=== PATIENT | male | born 1945 | race Caucasian/White ===

== ENCOUNTER 2017-05-11 08:14 | Inpatient (IN) | payer MEDICARE, MEDICAID ==
[~2017-05-11] VITALS: Ht 175.3 cm; Wt 80.0 kg
[2017-05-11] VITALS (9 sets, daily range): BP systolic 108–144; BP diastolic 65–91
[~2017-05-11 08:14] MED LIST: ACET-2119 PO; ALBU1.257 NEB; ARFO15VI3 NEB; ATOR40TA71 PO; CALC-1051 PO; CARV3.122 PO; CLOP75TA15 PO; DOCU-28 PO; DOCUMENT DATE & TIME OF BETA-BLOCKER PO ONE; FLO0.4C PO; FLUO20CA22 PO; FLUT1AER INH; FOL0.4T PO; FURO-150 PO; HEPARIN SQ; LACT1CAP65 PO; LANTUS SQ; LISI-600 PO; MAG355OR18 PO; MULT1TAB74 PO; NITR0.4T48 SL; PANT-47 PO; PER5325T PO; POLY17PO10 PO; PREG100C PO; SLIDINGSCALE INSULIN SQ; TRAZ-143 PO; VITC500T PO; [UNRECOGNIZED DRUG - OTHER] PO; ceFAZolin 2gm in dextrose, iso 100 ML IV ONE; famotidine 20mg tablet PO ONE; ringers solution, lacted 1,000 ML IV SCH
[2017-05-11 09:54] LABS: PRE OP INR 1.1 INR; PRE OP PROTIME 11.4 SECONDS (9.0-12.0)
[2017-05-11 10:07] LABS: ALBUMIN 2.1 G/DL (3.4-5.0); ALBUMIN/GLOBULIN RATIO 0.5 (1.1-1.5); ALKALINE PHOSPHATASE 118 IU/L (46-116); BLOOD UREA NITROGEN 16 MG/DL (7-18); BUN/CREATININE RATIO 17.8 (5.4-32.0); CALCIUM 8.6 MG/DL (8.5-10.1); CHLORIDE 101 MMOL/L (99-107); PRE OP ALT 30 U/L (30-65); PRE OP ANION GAP 6 (8-16); PRE OP AST 18 U/L (10-37); PRE OP GLUCOSE 192 MG/DL (70-104); PRE OP POTASSIUM 4.6 MMOL/L (3.4-5.1); PRE OP SODIUM 134 MMOL/L (135-145); TOTAL CARBON DIOXIDE 26.7 MMOL/L (24-32); TOTAL PROTEIN 6.5 G/DL (6.4-8.2); eGFR 83 ML/MIN
[2017-05-11 10:21] LABS: BASOPHILS # (AUTO) 0.1 X10'3 (0-0.2); BASOPHILS % (AUTO) 0.6 % (0-1); EOSINOPHILS # (AUTO) 0.1 X10'3 (0-0.9); EOSINOPHILS % (AUTO) 0.8 % (0-6); LYMPHOCYTES # (AUTO) 2.2 X10'3 (1.1-4.8); LYMPHOCYTES % (AUTO) 21.7 % (21-51); MEAN CORPUSCULAR HEMOGLOBIN 27.5 PG (27.0-31.0); MEAN CORPUSCULAR HGB CONC 33.5 % (33.0-36.5); MEAN CORPUSCULAR VOLUME 82.2 FL (78-98); MEAN PLATELET VOLUME 8.3 FL (7.4-10.4); MONOCYTES # (AUTO) 0.7 X10'3 (0-0.9); MONOCYTES % (AUTO) 6.9 % (2-12); NEUTROPHILS # (AUTO) 7.2 X10'3 (1.8-7.7); PRE OP HEMATOCRIT 35.3 % (42.0-52.0); PRE OP HEMOGLOBIN 11.8 g/dL (14.0-17.9); PRE OP PLATELET COUNT 335 X10'3 (140-440); RED CELL DISTRIBUTION WIDTH 19.5 % (11.5-14.5)
[2017-05-11 10:36] LABS: HEMOGLOBIN A1C 8.5 % (4.5-6.2)
[2017-05-11 11:37] LABS: CLARITY,URINE CLOUDY (Clear); COLOR,URINE YELLOW (Yellow); GLUCOSE, URINE NEGATIVE (Neg); KETONES,URINE NEGATIVE (Neg); LEUKOCYTE ESTERASE ,URINE MODERATE (Neg); NITRITES, URINE NEGATIVE (Neg); OCCULT BLOOD,URINE LARGE (Neg); PH,URINE 7.5 (4.8-8.0); PROTEIN,URINE TRACE mg/dl (Neg)
[2017-05-11] MEDS ORDERED: ceFAZolin 1000mg inj ONE (11:37)
[2017-05-11] MEDS ORDERED: heparin 10,000 units/1 ML INJ ONE (11:37)
[2017-05-11 11:38] LABS: UA COLLECTION TYPE FOLEY CATH
[2017-05-11] MEDS ORDERED: fentaNYL/PF 50MCG/1 ML 2ML syringe ONE (11:46)
[2017-05-11] MEDS ORDERED: sevoflurane 250ml liquid IH ONE (11:57)
[2017-05-11 12:21] LABS: BACTERIA,URINE 4+ /HPF (Neg); MUCUS STRANDS FEW /LPF (Neg); SQUAMOUS EPITHELIAL CELL,UR FEW /LPF (FEW)
[2017-05-11] MEDS ORDERED: ringers solution, lacted 1,000 ML IV ONE (12:26)
[2017-05-11] MEDS ORDERED: meperidine/PF 25mg/ml syringe IV PRN ×2 (12:30)
[2017-05-11] MEDS ORDERED: labetalol 20mg/4ml (5mg/ml) syringe IV PRN (12:30)
[2017-05-11] MEDS ORDERED: hydrALAZINE 20mg/ml inj. IV PRN (12:30)
[2017-05-11] MEDS ORDERED: ondansetron/PF 4mg/2ml inj IV PRN (12:30)
[2017-05-11] MEDS ORDERED: meperidine/PF 25mg/ml syringe IV ONE (12:30)
[2017-05-11] MEDS ORDERED: LIDOcaine 1%/PF (10mg/ml) 5ml vial ONE (12:35)
[2017-05-11] MEDS ORDERED: propofol inj 20 ML IV ONE (12:35)
[2017-05-11] MEDS ORDERED: rocuronium 10mg/ml inj IV ONE (12:35)
[2017-05-11] MEDS ORDERED: glycopyrrolate 0.2mg/ml inj ONE (12:48)
[2017-05-11] MEDS ORDERED: neostigmine methylsulfate 1 MG/ML 10ml vial ONE (12:48)
[2017-05-11] MEDS ORDERED: esmolol inj. 10 ML IV ONE (12:54)
== END 2017-05-11 14:45 | DRG 493 ==
LOC: PAS 08:14 → PAS IN 09:26 → EDSTATUS 12:00
PROVIDERS: ADMIT Surgery; ATTEND Surgery
PROC: 0QBJ0ZZ Excision of Right Fibula, Open Approach (ICD-10-PCS; 2017-05-11)
PROC: 0QBG0ZZ Excision of Right Tibia, Open Approach (ICD-10-PCS; 2017-05-11)
PROC: 04PY0DZ Removal of Intraluminal Device from Lower Artery, Open Approach (ICD-10-PCS; principal; 2017-05-11 11:57)
DX: T87.89 Other complications of amputation stump (principal); I13.0 Hypertensive heart and chronic kidney disease with heart failure and stage 1 through stage 4 chronic kidney disease, or unspecified chronic kidney disease; E11.22 Type 2 diabetes mellitus with diabetic chronic kidney disease; E11.42 Type 2 diabetes mellitus with diabetic polyneuropathy; I50.9 Heart failure, unspecified; N18.3 Chronic kidney disease, stage 3 (moderate); I25.10 Atherosclerotic heart disease of native coronary artery without angina pectoris; E78.5 Hyperlipidemia, unspecified; K21.9 Gastro-esophageal reflux disease without esophagitis; F32.9 Major depressive disorder, single episode, unspecified; J44.9 Chronic obstructive pulmonary disease, unspecified; Y83.5 Amputation of limb(s) as the cause of abnormal reaction of the patient, or of later complication, without mention of misadventure at the time of the procedure; Y92.89 Other specified places as the place of occurrence of the external cause
CPT/HCPCS: 36415; 80053; 81001; 82948; 83036; 85025; 85610; 85730; 86885; 86900; 86901; 87077; 87088; 87186; A6258; A6446; A6449; A7000; J0690; J1644; J2001; J2704; J2710; J3010; J3490; J7030; J7120

== ENCOUNTER 2017-06-15 10:48 | Day surgery (SDC) | payer MEDICARE, MEDICAID ==
[~2017-06-15] VITALS: Ht 175.3 cm; Wt 66.0 kg
[2017-06-15] VITALS (7 sets, daily range): BP systolic 96–115; BP diastolic 59–71
[~2017-06-15 10:48] MED LIST changes: +BISA10SU60 RC; +CALC-729 PO; +DICLOFENAC CREAM TOP; -FURO-150 PO; +GUAI100L97 PO; -HEPARIN SQ; -LACT1CAP65 PO; +ONDA8TAB9 PO; +PROC-8 PO; +ZIN220C PO; +albuterol 2.5 MG/3 ML nebule ONE; -ceFAZolin 2gm in dextrose, iso 100 ML IV ONE; +cefazolin/dext.iso 2gm/50ml 50 ML IV ONE
[2017-06-15] MEDS ORDERED: LIDOcaine 1% (10mg/ml) 2ml vial ONE (11:53)
[2017-06-15 12:21] LABS: BASOPHILS % (AUTO) 0.3 % (0-1); EOSINOPHILS # (AUTO) 0.2 X10'3 (0-0.9); EOSINOPHILS % (AUTO) 1.4 % (0-6); HEMATOCRIT 34.5 % (42.0-52.0); HEMOGLOBIN 11.6 g/dl (14.0-17.9); LYMPHOCYTES # (AUTO) 1.6 X10'3 (1.1-4.8); LYMPHOCYTES % (AUTO) 12.4 % (21-51); MEAN CORPUSCULAR HEMOGLOBIN 27.6 PG (27.0-31.0); MEAN CORPUSCULAR HGB CONC 33.7 % (33.0-36.5); MEAN CORPUSCULAR VOLUME 81.8 FL (78-98); MEAN PLATELET VOLUME 8.2 FL (7.4-10.4); MONOCYTES % (AUTO) 7.7 % (2-12); NEUTROPHILS # (AUTO) 9.8 X10'3 (1.8-7.7); NEUTROPHILS % (AUTO) 78.2 % (42-75); PLATELET COUNT 233 X10'3 (140-440); RED BLOOD COUNT 4.22 X10'6 (4.70-6.10); WHITE BLOOD COUNT 12.6 X10'3 (4.5-11.0)
[2017-06-15 12:45] LABS: ALANINE AMINOTRANSFERASE 58 U/L (12-78); ALBUMIN 2.5 G/DL (3.4-5.0); ALBUMIN/GLOBULIN RATIO 0.6 (1.1-1.5); ALKALINE PHOSPHATASE 111 IU/L (46-116); ANION GAP 8 (8-16); ASPARTATE AMINO TRANSFERASE 38 U/L (10-37); BLOOD UREA NITROGEN 32 MG/DL (7-18); BUN/CREATININE RATIO 30.5 (5.4-32.0); CHLORIDE 95 MMOL/L (99-107); CREATININE 1.05 MG/DL (0.60-1.10); GLUCOSE 137 MG/DL (70-104); POTASSIUM 4.9 MMOL/L (3.5-5.1); SODIUM 129 MMOL/L (135-145); TOTAL CARBON DIOXIDE 25.7 MMOL/L (24-32); TOTAL PROTEIN 6.7 G/DL (6.4-8.2); eGFR 70 ML/MIN
[2017-06-15] MEDS ORDERED: sevoflurane 250ml liquid IH ONE (13:43)
[2017-06-15] MEDS ORDERED: cloNIDine hcl/PF 100mcg/ml inj ONE (13:44)
[2017-06-15] MEDS ORDERED: midazolam 2 mg/2 ml injection ONE (13:46)
[2017-06-15] MEDS ORDERED: BUPIVAcaine/PF 2.5 mg/ml (0.25%) 30ml vial ONE ×2 (14:11)
[2017-06-15] MEDS ORDERED: LIDOcaine 2% (20mg/ml) 5ml vial ONE (14:14)
[2017-06-15] MEDS ORDERED: ePHEDrine 50MG/ML INJ. ONE (14:14)
[2017-06-15] MEDS ORDERED: dexamethasone sod phosphate 4mg/ml inj. ONE (14:14)
[2017-06-15] MEDS ORDERED: propofol inj 20 ML IV ONE (14:14)
[2017-06-15] MEDS ORDERED: rocuronium 10mg/ml inj IV ONE (14:14)
[2017-06-15] MEDS ORDERED: ringers solution, lacted 1,000 ML IV SCH (14:48)
[2017-06-15] MEDS ORDERED: proCHLORperazine 10 MG/2 ml inj IV PRN (14:50)
[2017-06-15] MEDS ORDERED: fentaNYL/PF 50MCG/1 ML 2ML syringe IV PRN ×2 (14:50)
[2017-06-15] MEDS ORDERED: ondansetron/PF 4mg/2ml inj IV PRN (14:50)
== END 2017-06-15 15:44 ==
LOC: PAS 10:48
PROVIDERS: ATTEND Surgery
DX: T87.89 Other complications of amputation stump (principal); Y83.5 Amputation of limb(s) as the cause of abnormal reaction of the patient, or of later complication, without mention of misadventure at the time of the procedure; Y92.89 Other specified places as the place of occurrence of the external cause; J44.9 Chronic obstructive pulmonary disease, unspecified; M86.9 Osteomyelitis, unspecified; E11.69 Type 2 diabetes mellitus with other specified complication; E11.22 Type 2 diabetes mellitus with diabetic chronic kidney disease; N18.3 Chronic kidney disease, stage 3 (moderate); E78.5 Hyperlipidemia, unspecified; I50.9 Heart failure, unspecified; K21.9 Gastro-esophageal reflux disease without esophagitis; F32.9 Major depressive disorder, single episode, unspecified; I48.91 Unspecified atrial fibrillation; E11.42 Type 2 diabetes mellitus with diabetic polyneuropathy; Z86.73 Personal history of transient ischemic attack (TIA), and cerebral infarction without residual deficits
CPT/HCPCS: 27594; 36415; 80053; 82948; 85025; 93005; A6222; A6446; A6449; A6454; J0690; J0735; J1100; J2001; J2704; J3010; J3490; J7120; A7000; J2250

== ENCOUNTER 2018-09-19 15:48 | Emergency (ER) | payer MEDICARE, OTHER ==
[~2018-09-19] VITALS: Ht 175.3 cm; Wt 72.7 kg
[~2018-09-19 15:48] MED LIST changes: -CLOP75TA15 PO; -DOCUMENT DATE & TIME OF BETA-BLOCKER PO ONE; -FOL0.4T PO; +FOLI0.4T14 PO; -TRAZ-143 PO; +TRAZ-251 PO; -albuterol 2.5 MG/3 ML nebule ONE; -cefazolin/dext.iso 2gm/50ml 50 ML IV ONE; -famotidine 20mg tablet PO ONE; -ringers solution, lacted 1,000 ML IV SCH
[2018-09-19] MEDS ORDERED: ondansetron 4mg rapidly disintigrating tab PO ONE (16:50)
[2018-09-19] MEDS ORDERED: mupirocin 2% ointment 22GM TP ONE (16:50)
[2018-09-19] MEDS ORDERED: normal saline 1000ml 1,000 ML IV ONE (16:50)
[2018-09-19] MEDS ORDERED: doxycycline inj 100 MG in normal saline 100ml IV soln 100 ML IV ONE (16:50)
[2018-09-19] MEDS ORDERED: ceFAZolin 1GM/D5W- ADD-VANTAGE 50 ML IV ONE (16:50)
[2018-09-19] MEDS ORDERED: DOXY100C43 PO (17:16)
[2018-09-19] MEDS ORDERED: CEPH250T PO (17:16)
[2018-09-19] MEDS ORDERED: ONDA8TAB6 PO (17:16)
[2018-09-19 17:51] VITALS: BP 130/62
--- NOTE | 2018-09-19 18:05 | NUR ---
PATIENT PROVIDED EXTRA 4 X 4 GAUZE AND ARMANDO WRAP
[2018-09-21] MEDS ORDERED: INSU100I31 SUBCUT (22:47)
== END 2018-09-19 18:40 | disposition home or self-care (01) ==
LOC: ER 15:49
DX: L08.89 Other specified local infections of the skin and subcutaneous tissue (principal); I48.91 Unspecified atrial fibrillation; I25.10 Atherosclerotic heart disease of native coronary artery without angina pectoris; E78.00 Pure hypercholesterolemia, unspecified; I25.2 Old myocardial infarction; K21.9 Gastro-esophageal reflux disease without esophagitis; I13.0 Hypertensive heart and chronic kidney disease with heart failure and stage 1 through stage 4 chronic kidney disease, or unspecified chronic kidney disease; E11.22 Type 2 diabetes mellitus with diabetic chronic kidney disease; N18.9 Chronic kidney disease, unspecified; I50.9 Heart failure, unspecified; E11.42 Type 2 diabetes mellitus with diabetic polyneuropathy; Z95.5 Presence of coronary angioplasty implant and graft; Z89.611 Acquired absence of right leg above knee; Z95.1 Presence of aortocoronary bypass graft; Z98.890 Other specified postprocedural states; Z86.73 Personal history of transient ischemic attack (TIA), and cerebral infarction without residual deficits; Z79.899 Other long term (current) drug therapy; Z88.5 Allergy status to narcotic agent; Z79.4 Long term (current) use of insulin
CPT/HCPCS: 96365; 96368; 99284; J0690; J7030; J3490

== ENCOUNTER 2018-12-28 17:59 | Emergency (ER) | payer MEDICARE, OTHER ==
[~2018-12-28] VITALS: Ht 175.3 cm; Wt 73.0 kg
[~2018-12-28 17:59] MED LIST changes: -ALBU1.257 NEB; -ARFO15VI3 NEB; -CARV3.122 PO; -DICLOFENAC CREAM TOP; -FLUT1AER INH; -GUAI100L97 PO; +INSU100I31 SUBCUT; -LANTUS SQ; -MULT1TAB74 PO; -ONDA8TAB9 PO; -PER5325T PO; -PROC-8 PO
--- NOTE | 2018-12-28 20:13 | NUR ---
PATIENT LEFT [facility] MID OCTOBER FOR OSTEOMYLITIS
[2018-12-28] MEDS ORDERED: normal saline 1000ml 1,000 ML IV ONE (20:15)
[2018-12-28] MEDS ORDERED: vancomycin/NS 1 GM ADD-VANTAGE 250 ML IV ONE (20:15)
--- NOTE | 2018-12-28 20:36 | NUR ---
DAUGHTER BALJIT PARKER [phone] CELL; HER HUSBANDS CELL [phone]
--- NOTE | 2018-12-28 20:50 | NUR ---
PATIENT STATES THAT LEFT ARM GIVES VERY HIGH BLOOD PRESSURE READINGS DAUGHTER TOOK PATIENT'S WHEELCHAIR
[2018-12-28 20:52] LABS: BASOPHILS # (AUTO) 0.1 X10'3 (0-0.2); BASOPHILS % (AUTO) 0.8 % (0-1); EOSINOPHILS # (AUTO) 0.1 X10'3 (0-0.9); EOSINOPHILS % (AUTO) 1.3 % (0-6); HEMATOCRIT 43.8 % (42.0-52.0); HEMOGLOBIN 14.7 g/dl (14.0-17.9); LYMPHOCYTES # (AUTO) 1.6 X10'3 (1.1-4.8); MEAN CORPUSCULAR HEMOGLOBIN 30.7 PG (27.0-31.0); MEAN CORPUSCULAR HGB CONC 33.6 g/dL (33.0-36.5); MEAN CORPUSCULAR VOLUME 91.3 FL (78-98); MEAN PLATELET VOLUME 9.3 FL (7.4-10.4); MONOCYTES % (AUTO) 10.1 % (2-12); NEUTROPHILS # (AUTO) 7.2 X10'3 (1.8-7.7); NEUTROPHILS % (AUTO) 71.8 % (42-75); PLATELET COUNT 171 X10'3 (140-440); RED CELL DISTRIBUTION WIDTH 14.5 % (11.5-14.5)
[2018-12-28 21:26] LABS: ALANINE AMINOTRANSFERASE 21 U/L (12-78); ALBUMIN 3.1 G/DL (3.4-5.0); ALBUMIN/GLOBULIN RATIO 0.7 (1.1-1.5); ALKALINE PHOSPHATASE 81 IU/L (46-116); ANION GAP 10 (8-16); ASPARTATE AMINO TRANSFERASE 13 U/L (10-37); BILIRUBIN,TOTAL 0.7 MG/DL (0.1-1.0); BLOOD UREA NITROGEN 26 MG/DL (7-18); BUN/CREATININE RATIO 21.8 (5.4-32.0); CALCIUM 8.8 MG/DL (8.5-10.1); CHLORIDE 103 MMOL/L (99-107); CREATININE 1.19 MG/DL (0.60-1.10); GLUCOSE 207 MG/DL (70-104); MAGNESIUM 1.8 MG/DL (1.5-2.4); POTASSIUM 4.3 MMOL/L (3.5-5.1); SODIUM 136 MMOL/L (135-145); TOTAL CARBON DIOXIDE 22.7 MMOL/L (24-32); TOTAL PROTEIN 7.3 G/DL (6.4-8.2); eGFR 60 ML/MIN
--- NOTE | 2018-12-28 21:54 | NUR ---
PER DAUGHTER, PT CATHETER WAS CHANGED LAST WEEK BY [facility] TIRE ROOM SUPERVISOR AND IS CHANGED MONTHLY.
[2018-12-28 22:04] LABS: CLARITY,URINE CLEAR (Clear); COLOR,URINE STRAW (Yellow); GLUCOSE, URINE NEGATIVE (Neg); KETONES,URINE NEGATIVE (Neg); LEUKOCYTE ESTERASE ,URINE MODERATE (Neg); NITRITES, URINE NEGATIVE (Neg); OCCULT BLOOD,URINE TRACE-INTACT (Neg); PH,URINE 5.5 (4.8-8.0); PROTEIN,URINE NEGATIVE (Neg); UROBILINOGEN,URINE 0.2 E.U/dL (0.2-1.0)
[2018-12-28 22:09] LABS: UA COLLECTION TYPE FOLEY CATH
[2018-12-28 22:11] LABS: BACTERIA,URINE FEW /HPF (Neg); RBC,URINE NONE SEEN /HPF (0-2); SQUAMOUS EPITHELIAL CELL,UR NONE SEEN /LPF (FEW)
--- NOTE | 2018-12-28 22:33 | NUR ---
CALLED [facility] TO TRY FOR INFECTIOUS CONSOULT WAS NOTIFIED THAT THEY DONT HAVE INFECTION CONTROLE AFTER SCHOOL TUTOR
[2018-12-28] MEDS ORDERED: SULF1TAB49 PO (22:49)
[2018-12-28] MEDS ORDERED: sulfamethoxazole/trimethoprim DS (800/160mg) tablet PO ONE (22:50)
[2018-12-28 23:46] VITALS: BP 121/55
--- NOTE | 2018-12-31 15:06 | NUR ---
called pt and spoke to daughter about adding cipro for uti. Cipro 500mg po BID called to gianna
== END 2018-12-28 23:49 | disposition home or self-care (01) ==
LOC: ER 17:59
DX: T87.44 Infection of amputation stump, left lower extremity (principal); L03.116 Cellulitis of left lower limb; I48.91 Unspecified atrial fibrillation; I25.10 Atherosclerotic heart disease of native coronary artery without angina pectoris; E78.00 Pure hypercholesterolemia, unspecified; I25.2 Old myocardial infarction; K21.9 Gastro-esophageal reflux disease without esophagitis; I13.0 Hypertensive heart and chronic kidney disease with heart failure and stage 1 through stage 4 chronic kidney disease, or unspecified chronic kidney disease; E11.22 Type 2 diabetes mellitus with diabetic chronic kidney disease; N18.9 Chronic kidney disease, unspecified; I50.89 Other heart failure; F32.9 Major depressive disorder, single episode, unspecified; Z98.61 Coronary angioplasty status; Z95.1 Presence of aortocoronary bypass graft; Z95.0 Presence of cardiac pacemaker; Z88.5 Allergy status to narcotic agent; Z79.4 Long term (current) use of insulin; Z79.899 Other long term (current) drug therapy; Y84.8 Other medical procedures as the cause of abnormal reaction of the patient, or of later complication, without mention of misadventure at the time of the procedure; Y92.89 Other specified places as the place of occurrence of the external cause
CPT/HCPCS: 36415; 71045; 80053; 81001; 83605; 83735; 84145; 85025; 85610; 87040; 87077; 87088; 87186; 93005; 96365; 96366; 99284; J3370; J7030

== ENCOUNTER 2019-01-06 12:44 | Inpatient (IN) | payer MEDICARE, OTHER ==
[~2019-01-06] VITALS: Ht 175.3 cm; Wt 74.1 kg
[~2019-01-06 12:44] MED LIST changes: -CALC-729 PO; -DOCU-28 PO; -MAG355OR18 PO; -NITR0.4T48 SL; +SULF1TAB49 PO
[2019-01-06] MEDS ORDERED: proCHLORperazine 10 MG/2 ml inj IV ONE (13:45)
[2019-01-06] MEDS ORDERED: diphenhydrAMINE 50 mg/ml inj IV ONE (13:45)
[2019-01-06] MEDS ORDERED: normal saline 1000ML IV soln IVB ONE (13:45)
[2019-01-06 14:04] LABS: BASOPHILS # (AUTO) 0.1 X10'3 (0-0.2); BASOPHILS % (AUTO) 0.4 % (0-1); EOSINOPHILS # (AUTO) 0.1 X10'3 (0-0.9); EOSINOPHILS % (AUTO) 0.4 % (0-6); HEMATOCRIT 45.5 % (42.0-52.0); HEMOGLOBIN 15.3 g/dl (14.0-17.9); LYMPHOCYTES # (AUTO) 1.4 X10'3 (1.1-4.8); LYMPHOCYTES % (AUTO) 9.6 % (21-51); MEAN CORPUSCULAR HEMOGLOBIN 30.5 PG (27.0-31.0); MEAN CORPUSCULAR HGB CONC 33.7 g/dL (33.0-36.5); MEAN CORPUSCULAR VOLUME 90.7 FL (78-98); MEAN PLATELET VOLUME 8.5 FL (7.4-10.4); MONOCYTES # (AUTO) 1.4 X10'3 (0-0.9); MONOCYTES % (AUTO) 9.4 % (2-12); NEUTROPHILS # (AUTO) 11.6 X10'3 (1.8-7.7); NEUTROPHILS % (AUTO) 80.2 % (42-75); PLATELET COUNT 240 X10'3 (140-440); RED BLOOD COUNT 5.01 X10'6 (4.70-6.10); RED CELL DISTRIBUTION WIDTH 14.7 % (11.5-14.5); WHITE BLOOD COUNT 14.4 X10'3 (4.5-11.0)
[2019-01-06 14:19] LABS: ALANINE AMINOTRANSFERASE 34 U/L (12-78); ALBUMIN 3.6 G/DL (3.4-5.0); ALBUMIN/GLOBULIN RATIO 0.9 (1.1-1.5); ALKALINE PHOSPHATASE 87 IU/L (46-116); ANION GAP 12 (8-16); ASPARTATE AMINO TRANSFERASE 20 U/L (10-37); BILIRUBIN,TOTAL 1.2 MG/DL (0.1-1.0); BLOOD UREA NITROGEN 21 MG/DL (7-18); BUN/CREATININE RATIO 15.7 (5.4-32.0); CALCIUM 8.7 MG/DL (8.5-10.1); CHLORIDE 96 MMOL/L (99-107); CREATININE 1.34 MG/DL (0.60-1.10); GLUCOSE 149 MG/DL (70-104); POTASSIUM 4.9 MMOL/L (3.5-5.1); SODIUM 129 MMOL/L (135-145); TOTAL CARBON DIOXIDE 20.9 MMOL/L (24-32); TOTAL PROTEIN 7.8 G/DL (6.4-8.2); eGFR 52 ML/MIN
[2019-01-06 15:40] LABS: CLARITY,URINE CLEAR (Clear); COLOR,URINE YELLOW (Yellow); GLUCOSE, URINE NEGATIVE (Neg); KETONES,URINE 15 mg/dl (Neg); LEUKOCYTE ESTERASE ,URINE NEGATIVE (Neg); NITRITES, URINE NEGATIVE (Neg); OCCULT BLOOD,URINE MODERATE (Neg); PROTEIN,URINE NEGATIVE (Neg); UROBILINOGEN,URINE 0.2 E.U/dL (0.2-1.0)
[2019-01-06 15:42] LABS: UA COLLECTION TYPE FOLEY CATH
[2019-01-06 15:52] LABS: SQUAMOUS EPITHELIAL CELL,UR NONE SEEN /LPF (FEW)
[2019-01-06 15:53] LABS: BACTERIA,URINE NONE SEEN /HPF (Neg); WBC,URINE 0-4 /HPF (0-4)
[2019-01-06] MEDS ORDERED: acetaminophen 325mg tablet PO PRN (17:10)
[2019-01-06] MEDS ORDERED: mag hydrox/Alum hydrox/simeth 30ml oral suspension PO PRN (17:10)
[2019-01-06] MEDS ORDERED: magnesium hydroxide 30ml (MOM) UD suspension PO PRN (17:10)
[2019-01-06] MEDS ORDERED: ondansetron/PF 4mg/2ml inj IV PRN (17:10)
[2019-01-06 18:16] VITALS: BP 131/67
--- NOTE | 2019-01-06 18:43 | NUR ---
Problems reprioritized. Patient report given, questions answered & plan of care reviewed with Sandra COE.
[2019-01-06] MEDS: normal saline 1000ml 1,000 ML IV SCH (20:27)
[2019-01-06] MEDS: cefepime 1GM/NS ADD-VANTAGE 100 ML IV SCH (20:34)
[2019-01-06] MEDS ORDERED: TAMSULOSIN HCL 0.4 MG PO SCH (21:00)
[2019-01-06 22:00] VITALS: BP 119/69
[2019-01-06] MEDS: tamsulosin 0.4mg capsule PO SCH (23:45)
[2019-01-06] MEDS: heparin, porcine 5000 units/ml vial SQ SCH (23:48)
[2019-01-07] VITALS (8 sets, daily range): BP systolic 112–149; BP diastolic 52–76
[2019-01-07] MEDS ORDERED: cefepime 1GM in D5W 50mL 50 ML IV SCH
[2019-01-07] MEDS: cefepime 1GM/NS ADD-VANTAGE 100 ML IV SCH ×3 (02:59→19:22)
[2019-01-07] MEDS: normal saline 1000ml 1,000 ML IV SCH ×3 (03:08→23:15)
--- NOTE | 2019-01-07 06:40 | NUR ---
Patient in room PCU 3020. I have received report from Sandra COE and had the opportunity to ask questions and assume patient care.
[2019-01-07 06:42] LABS: BASOPHILS # (AUTO) 0.1 X10'3 (0-0.2); BASOPHILS % (AUTO) 0.6 % (0-1); EOSINOPHILS # (AUTO) 0.1 X10'3 (0-0.9); EOSINOPHILS % (AUTO) 0.9 % (0-6); HEMOGLOBIN 15.3 g/dl (14.0-17.9); LYMPHOCYTES % (AUTO) 10.6 % (21-51); MEAN CORPUSCULAR HEMOGLOBIN 31.2 PG (27.0-31.0); MEAN CORPUSCULAR HGB CONC 34.7 g/dL (33.0-36.5); MEAN PLATELET VOLUME 8.6 FL (7.4-10.4); MONOCYTES # (AUTO) 1.1 X10'3 (0-0.9); MONOCYTES % (AUTO) 11.4 % (2-12); NEUTROPHILS # (AUTO) 7.4 X10'3 (1.8-7.7); NEUTROPHILS % (AUTO) 76.5 % (42-75); PLATELET COUNT 183 X10'3 (140-440); RED BLOOD COUNT 4.89 X10'6 (4.70-6.10); RED CELL DISTRIBUTION WIDTH 14.2 % (11.5-14.5); WHITE BLOOD COUNT 9.7 X10'3 (4.5-11.0)
--- NOTE | 2019-01-07 06:51 | NUR ---
Problems reprioritized. Patient report given, questions answered & plan of care reviewed with Shawna COE.
[2019-01-07] MEDS ORDERED: insulin glargine (Lantus) pen - multi-dose SQ SCH (08:00)
[2019-01-07 08:02] LABS: ALBUMIN 3.2 G/DL (3.4-5.0); ANION GAP 14 (8-16); BLOOD UREA NITROGEN 17 MG/DL (7-18); BUN/CREATININE RATIO 14.2 (5.4-32.0); CALCIUM 8.1 MG/DL (8.5-10.1); CHLORIDE 103 MMOL/L (99-107); GLUCOSE 137 MG/DL (70-104); POTASSIUM 4.2 MMOL/L (3.5-5.1); SODIUM 134 MMOL/L (135-145); TOTAL CARBON DIOXIDE 17.3 MMOL/L (24-32); eGFR 60 ML/MIN
[2019-01-07] MEDS: lisinopril 20mg tablet PO SCH (09:27)
[2019-01-07] MEDS: heparin, porcine 5000 units/ml vial SQ SCH ×2 (09:29→19:22)
--- NOTE | 2019-01-07 12:46 | NUR ---
DM Consult: A1C 7.5. Pt seen by RD for written/verbal DM ed w/ RD contact/CDE course information provided. Pt states daughter closely monitors DM and takes care of him. Pt has no dentures and no teeth as well so requests chopped meats and no cucumbers since can chew all other foods; dietary notified. Pt declined verbal review; RD encouraged to contact dietitian if any questions and attend CDE course w/ daughter. Addendum: 01/07/19 at [address] Amended: Links added.
--- NOTE | 2019-01-07 18:13 | NUR ---
Problems reprioritized. Patient report given, questions answered & plan of care reviewed with Dolores COE.
--- NOTE | 2019-01-07 18:49 | NUR ---
Patient in room PCU 3020. I have received report from Shawna COE, CAROLIN Carlson and had the opportunity to ask questions and assume patient care.
[2019-01-07] MEDS ORDERED: insulin Lispro (HumaLOG) vial - multi-dose SQ SCH (18:55)
[2019-01-07] MEDS ORDERED: glucagon, human recombinant 1mg kit SUBCUT PRN (18:55)
[2019-01-07] MEDS ORDERED: dextrose 50%-water 50ml dispensing syringe IV PRN ×2 (18:55)
[2019-01-07] MEDS ORDERED: dextrose ORAL solution 15 GM/59 ML bottle PO PRN ×2 (18:55)
[2019-01-07] MEDS: lactobacillus rhamnosus 10,000 MMU CELLS/CAPSULE PO SCH (19:22)
[2019-01-07] MEDS: tamsulosin 0.4mg capsule PO SCH (21:14)
[2019-01-07] MEDS: insulin glargine (Lantus) pen - multi-dose SQ SCH (23:10)
[2019-01-08] MEDS: cefepime 1GM/NS ADD-VANTAGE 100 ML IV SCH ×3 (02:02→19:17)
[2019-01-08 03:00] VITALS: BP 107/67
[2019-01-08 05:22] LABS: ALBUMIN 2.9 G/DL (3.4-5.0); ANION GAP 12 (8-16); BLOOD UREA NITROGEN 16 MG/DL (7-18); CALCIUM 7.5 MG/DL (8.5-10.1); CHLORIDE 104 MMOL/L (99-107); GLUCOSE 106 MG/DL (70-104); POTASSIUM 3.9 MMOL/L (3.5-5.1); SODIUM 136 MMOL/L (135-145); eGFR 73 ML/MIN
[2019-01-08 05:24] LABS: BASOPHILS # (AUTO) 0.1 X10'3 (0-0.2); BASOPHILS % (AUTO) 0.7 % (0-1); EOSINOPHILS # (AUTO) 0.1 X10'3 (0-0.9); EOSINOPHILS % (AUTO) 1.5 % (0-6); HEMATOCRIT 42.9 % (42.0-52.0); HEMOGLOBIN 14.6 g/dl (14.0-17.9); LYMPHOCYTES % (AUTO) 13.1 % (21-51); MEAN CORPUSCULAR HEMOGLOBIN 31.1 PG (27.0-31.0); MEAN CORPUSCULAR HGB CONC 34.1 g/dL (33.0-36.5); MEAN CORPUSCULAR VOLUME 91.1 FL (78-98); MEAN PLATELET VOLUME 8.6 FL (7.4-10.4); MONOCYTES % (AUTO) 12.8 % (2-12); NEUTROPHILS # (AUTO) 5.4 X10'3 (1.8-7.7); NEUTROPHILS % (AUTO) 71.9 % (42-75); PLATELET COUNT 169 X10'3 (140-440); RED BLOOD COUNT 4.71 X10'6 (4.70-6.10); RED CELL DISTRIBUTION WIDTH 14.3 % (11.5-14.5); WHITE BLOOD COUNT 7.5 X10'3 (4.5-11.0)
--- NOTE | 2019-01-08 06:07 | NUR ---
Problems reprioritized. Patient report given, questions answered & plan of care reviewed with CAROLIN Matos, CAROLIN Bowers.
--- NOTE | 2019-01-08 06:15 | NUR ---
Problems reprioritized. Patient report given, questions answered & plan of care reviewed with Dolores COE.
--- NOTE | 2019-01-08 06:15 | NUR ---
Patient in room PCU 3020. I have received report from Dolores COE and had the opportunity to ask questions and assume patient care.
[2019-01-08 07:00] VITALS: BP 136/68
[2019-01-08] MEDS: heparin, porcine 5000 units/ml vial SQ SCH ×2 (09:34→19:17)
[2019-01-08] MEDS: lisinopril 20mg tablet PO SCH (09:34)
[2019-01-08] MEDS: lactobacillus rhamnosus 10,000 MMU CELLS/CAPSULE PO SCH ×2 (09:34→19:17)
[2019-01-08] MEDS: pregabalin 25mg capsule PO SCH ×2 (09:34→16:00)
[2019-01-08 11:00] VITALS: BP 157/75
[2019-01-08 15:00] VITALS: BP 130/58
[2019-01-08 18:00] VITALS: BP 108/42
--- NOTE | 2019-01-08 18:15 | NUR ---
Patient in room PCU 3020. I have received report from CAROLIN Matos and had the opportunity to ask questions and assume patient care.
--- NOTE | 2019-01-08 18:16 | NUR ---
Orientee documentation: I have reviewed and agree with all interventions, assessments performed and documented by Elsa COE. Orientee Medication Administration: For this medication-pass time frame, all medication were reviewed, dispensed, administered and documented per hospital policy by Elsa COE.
--- NOTE | 2019-01-08 19:09 | NUR ---
Patient in room PCU 3020. I have received report from Shawna RN, Elissa RN and had the opportunity to ask questions and assume patient care.
[2019-01-08] MEDS: tamsulosin 0.4mg capsule PO SCH (20:53)
[2019-01-08] MEDS: insulin glargine (Lantus) pen - multi-dose SQ SCH (21:00)
[2019-01-08 22:00] VITALS: BP 137/61
[2019-01-09] MEDS: cefepime 1GM/NS ADD-VANTAGE 100 ML IV SCH (01:41)
[2019-01-09] MEDS: pregabalin 25mg capsule PO SCH ×2 (01:41→08:05)
[2019-01-09 02:00] VITALS: BP 140/71
--- NOTE | 2019-01-09 05:03 | NUR ---
I have reviewed and agree with all medications administered and interventions performed by Orienting nurse CAROLIN Tamez
[2019-01-09 05:28] LABS: BASOPHILS # (AUTO) 0.1 X10'3 (0-0.2); BASOPHILS % (AUTO) 0.9 % (0-1); EOSINOPHILS # (AUTO) 0.2 X10'3 (0-0.9); EOSINOPHILS % (AUTO) 2.1 % (0-6); HEMATOCRIT 43.3 % (42.0-52.0); HEMOGLOBIN 14.7 g/dl (14.0-17.9); LYMPHOCYTES # (AUTO) 1.1 X10'3 (1.1-4.8); LYMPHOCYTES % (AUTO) 14.6 % (21-51); MEAN CORPUSCULAR VOLUME 91.4 FL (78-98); MEAN PLATELET VOLUME 8.8 FL (7.4-10.4); MONOCYTES # (AUTO) 0.9 X10'3 (0-0.9); MONOCYTES % (AUTO) 11.1 % (2-12); NEUTROPHILS # (AUTO) 5.6 X10'3 (1.8-7.7); NEUTROPHILS % (AUTO) 71.3 % (42-75); PLATELET COUNT 179 X10'3 (140-440); RED BLOOD COUNT 4.74 X10'6 (4.70-6.10); RED CELL DISTRIBUTION WIDTH 14.7 % (11.5-14.5); WHITE BLOOD COUNT 7.9 X10'3 (4.5-11.0)
[2019-01-09 06:00] VITALS: BP 129/64
[2019-01-09 06:11] LABS: ALBUMIN 2.8 G/DL (3.4-5.0); ANION GAP 10 (8-16); BLOOD UREA NITROGEN 16 MG/DL (7-18); BUN/CREATININE RATIO 15.8 (5.4-32.0); CHLORIDE 105 MMOL/L (99-107); CREATININE 1.01 MG/DL (0.60-1.10); GLUCOSE 82 MG/DL (70-104); SODIUM 136 MMOL/L (135-145); TOTAL CARBON DIOXIDE 20.8 MMOL/L (24-32); eGFR 73 ML/MIN
--- NOTE | 2019-01-09 06:15 | NUR ---
Problems reprioritized. Patient report given, questions answered & plan of care reviewed with CAROLIN Matos.
--- NOTE | 2019-01-09 06:23 | NUR ---
Patient in room PCU 3020. I have received report from Dolores COE and Joi COE and had the opportunity to ask questions and assume patient care. Patient is currently sleeping, in no apparent distress. Will continue to monitor.
[2019-01-09] MEDS: lactobacillus rhamnosus 10,000 MMU CELLS/CAPSULE PO SCH (08:05)
[2019-01-09] MEDS: heparin, porcine 5000 units/ml vial SQ SCH (08:05)
[2019-01-09 08:06] VITALS: BP_SYST 138
[2019-01-09] MEDS: lisinopril 20mg tablet PO SCH (08:06)
[2019-01-09] MEDS ORDERED: LEVO500T2 PO (10:58)
--- NOTE | 2019-01-09 13:25 | NUR ---
Sent page to case management: [id number] Librado Cotton: Patient's home health agency is [facility], contact is Ria. He wanted me to let case mngmt know. Thanks, Shawna [phone]
--- NOTE | 2019-01-09 13:44 | NUR ---
Patient stable for discharge per MD orders. All discharge education and information was reviewed with the patient before signing necessary paperwork. All belongings packed and sent with patient, ekg monitor removed, IV discontinued with catheter in tact. Patient wheeled down to lobby by resource RN, driven home by daughter.
[2019-01-09] MEDS ORDERED: cefepime 2g/NS 100ml ADVANTAGE 100 ML IV SCH (16:00)
== END 2019-01-09 13:35 | disposition home health service (06) | DRG 683 ==
LOC: ER 12:45 → MED 3N 17:57 → PCU 3S 18:12
PROVIDERS: ADMIT Family Medicine; ATTEND Family Medicine
DX: N17.0 Acute kidney failure with tubular necrosis (principal); L03.116 Cellulitis of left lower limb; E87.1 Hypo-osmolality and hyponatremia; I13.0 Hypertensive heart and chronic kidney disease with heart failure and stage 1 through stage 4 chronic kidney disease, or unspecified chronic kidney disease; I50.22 Chronic systolic (congestive) heart failure; N10 Acute pyelonephritis; B96.5 Pseudomonas (aeruginosa) (mallei) (pseudomallei) as the cause of diseases classified elsewhere; E11.22 Type 2 diabetes mellitus with diabetic chronic kidney disease; E11.42 Type 2 diabetes mellitus with diabetic polyneuropathy; E11.51 Type 2 diabetes mellitus with diabetic peripheral angiopathy without gangrene; E78.00 Pure hypercholesterolemia, unspecified; E78.5 Hyperlipidemia, unspecified; I25.10 Atherosclerotic heart disease of native coronary artery without angina pectoris; I48.91 Unspecified atrial fibrillation; F32.9 Major depressive disorder, single episode, unspecified; K21.9 Gastro-esophageal reflux disease without esophagitis; N18.9 Chronic kidney disease, unspecified; N40.0 Benign prostatic hyperplasia without lower urinary tract symptoms; Z82.49 Family history of ischemic heart disease and other diseases of the circulatory system; Z83.3 Family history of diabetes mellitus; I25.2 Old myocardial infarction; Z86.19 Personal history of other infectious and parasitic diseases; Z86.73 Personal history of transient ischemic attack (TIA), and cerebral infarction without residual deficits; Z89.511 Acquired absence of right leg below knee; Z89.611 Acquired absence of right leg above knee; Z95.1 Presence of aortocoronary bypass graft; Z95.810 Presence of automatic (implantable) cardiac defibrillator; Z88.5 Allergy status to narcotic agent
CPT/HCPCS: 36415; 74176; 80048; 80053; 81001; 82948; 83036; 83605; 84145; 85025; 87081; 96374; 96375; 99285; G0378; J0692; J0780; J1200; J1644; J1815; J7030

== ENCOUNTER 2019-03-07 14:34 | Emergency (ER) | payer MEDICARE, OTHER ==
[~2019-03-07] VITALS: Ht 175.3 cm; Wt 70.5 kg
[~2019-03-07 14:34] MED LIST changes: -SULF1TAB49 PO
[2019-03-07 15:01] VITALS: BP 141/87
[2019-03-07] MEDS ORDERED: CEPH-572 PO (17:07)
== END 2019-03-07 17:19 | disposition home or self-care (01) ==
LOC: ER 14:35
DX: S80.812A Abrasion, left lower leg, initial encounter (principal); E11.622 Type 2 diabetes mellitus with other skin ulcer; L97.929 Non-pressure chronic ulcer of unspecified part of left lower leg with unspecified severity; E11.42 Type 2 diabetes mellitus with diabetic polyneuropathy; I25.10 Atherosclerotic heart disease of native coronary artery without angina pectoris; I48.91 Unspecified atrial fibrillation; E78.00 Pure hypercholesterolemia, unspecified; I25.2 Old myocardial infarction; K21.9 Gastro-esophageal reflux disease without esophagitis; F32.9 Major depressive disorder, single episode, unspecified; I13.0 Hypertensive heart and chronic kidney disease with heart failure and stage 1 through stage 4 chronic kidney disease, or unspecified chronic kidney disease; E11.22 Type 2 diabetes mellitus with diabetic chronic kidney disease; I50.9 Heart failure, unspecified; N18.9 Chronic kidney disease, unspecified; Z86.73 Personal history of transient ischemic attack (TIA), and cerebral infarction without residual deficits; Z95.5 Presence of coronary angioplasty implant and graft; Z95.1 Presence of aortocoronary bypass graft; Z95.0 Presence of cardiac pacemaker; Z98.890 Other specified postprocedural states; Z88.5 Allergy status to narcotic agent; Z79.4 Long term (current) use of insulin; Z79.899 Other long term (current) drug therapy; X58.XXXA Exposure to other specified factors, initial encounter; Y93.89 Activity, other specified; Y92.89 Other specified places as the place of occurrence of the external cause; Y99.8 Other external cause status
CPT/HCPCS: 82948; 87070; 87077; 87186; 99283

== ENCOUNTER 2019-03-11 21:21 | Inpatient (IN) | payer MEDICARE, OTHER ==
[~2019-03-11] VITALS: Ht 175.3 cm; Wt 70.5 kg
[~2019-03-11 21:21] MED LIST changes: +CEPH-572 PO; +FLUO-213 PO; -FLUO20CA22 PO; -ZIN220C PO; +ZINC220C11 PO
[2019-03-11] MEDS ORDERED: piperacillin/tazo 3.375gm/50ml 50 ML IV ONE (22:28)
[2019-03-11 22:33] LABS: BASOPHILS # (AUTO) 0.1 X10'3 (0-0.2); BASOPHILS % (AUTO) 0.5 % (0-1); EOSINOPHILS # (AUTO) 0.1 X10'3 (0-0.9); HEMOGLOBIN 12.7 g/dl (14.0-17.9); LYMPHOCYTES # (AUTO) 1.2 X10'3 (1.1-4.8); LYMPHOCYTES % (AUTO) 9.8 % (21-51); MEAN CORPUSCULAR HEMOGLOBIN 30.4 PG (27.0-31.0); MEAN CORPUSCULAR HGB CONC 33.5 g/dL (33.0-36.5); MEAN CORPUSCULAR VOLUME 90.7 FL (78-98); MEAN PLATELET VOLUME 7.9 FL (7.4-10.4); MONOCYTES # (AUTO) 0.9 X10'3 (0-0.9); MONOCYTES % (AUTO) 7.5 % (2-12); NEUTROPHILS # (AUTO) 10.1 X10'3 (1.8-7.7); NEUTROPHILS % (AUTO) 81.2 % (42-75); PLATELET COUNT 378 X10'3 (140-440); RED BLOOD COUNT 4.18 X10'6 (4.70-6.10); RED CELL DISTRIBUTION WIDTH 15.4 % (11.5-14.5); WHITE BLOOD COUNT 12.4 X10'3 (4.5-11.0)
[2019-03-11 22:42] LABS: PARTIAL THROMBOPLASTIN TIME 35 SECONDS (22-32)
[2019-03-11 22:43] LABS: ALANINE AMINOTRANSFERASE 35 U/L (12-78); ALBUMIN 2.3 G/DL (3.4-5.0); ALBUMIN/GLOBULIN RATIO 0.5 (1.1-1.5); ALKALINE PHOSPHATASE 90 IU/L (46-116); ANION GAP 11 (8-16); ASPARTATE AMINO TRANSFERASE 27 U/L (10-37); BILIRUBIN,TOTAL 0.4 MG/DL (0.1-1.0); BLOOD UREA NITROGEN 24 MG/DL (7-18); BUN/CREATININE RATIO 15.8 (5.4-32.0); CALCIUM 8.5 MG/DL (8.5-10.1); CHLORIDE 96 MMOL/L (99-107); CREATININE 1.52 MG/DL (0.60-1.10); GLUCOSE 161 MG/DL (70-104); POTASSIUM 4.8 MMOL/L (3.5-5.1); SODIUM 128 MMOL/L (135-145); TOTAL CARBON DIOXIDE 20.9 MMOL/L (24-32); TOTAL PROTEIN 6.8 G/DL (6.4-8.2); eGFR 45 ML/MIN
[2019-03-11 23:19] LABS: CLARITY,URINE SLIGHTLY CLOUDY (Clear); COLOR,URINE YELLOW (Yellow); GLUCOSE, URINE NEGATIVE (Neg); KETONES,URINE NEGATIVE (Neg); LEUKOCYTE ESTERASE ,URINE TRACE (Neg); NITRITES, URINE NEGATIVE (Neg); OCCULT BLOOD,URINE LARGE (Neg); PROTEIN,URINE NEGATIVE (Neg)
[2019-03-11 23:25] LABS: UA COLLECTION TYPE FOLEY CATH
[2019-03-11 23:26] LABS: BACTERIA,URINE 1+ /HPF (Neg); RBC,URINE TNTC /HPF (0-2); SQUAMOUS EPITHELIAL CELL,UR FEW /LPF (FEW)
--- NOTE | 2019-03-11 23:51 | NUR ---
Wound photos in the chart from the left lower extremity
[2019-03-12] MEDS ORDERED: dextrose ORAL solution 15 GM/59 ML bottle PO PRN ×2 (00:10)
[2019-03-12] MEDS ORDERED: HYDROcodone/acetaminophen 5mg/325mg tablet PO PRN (00:10)
[2019-03-12] MEDS ORDERED: glucagon, human recombinant 1mg kit SUBCUT PRN (00:10)
[2019-03-12] MEDS ORDERED: MESSAGE TO PHARMACY PO ONE (00:10)
[2019-03-12] MEDS ORDERED: magnesium hydroxide 30ml (MOM) UD suspension PO PRN (00:10)
[2019-03-12] MEDS ORDERED: acetaminophen 325mg tablet PO PRN ×2 (00:10)
[2019-03-12] MEDS ORDERED: mag hydrox/Alum hydrox/simeth 30ml oral suspension PO PRN (00:10)
[2019-03-12] MEDS ORDERED: dextrose 50%-water 50ml dispensing syringe IV PRN ×2 (00:10)
[2019-03-12] MEDS ORDERED: vancomycin/NS 1 GM ADD-VANTAGE 250 ML IV SCH (01:00)
[2019-03-12 02:00] VITALS: BP 175/64
[2019-03-12 03:00] VITALS: BP 114/38
[2019-03-12] MEDS: vancomycin/NS 1 GM ADD-VANTAGE 250 ML IV SCH (04:30)
[2019-03-12 06:35] VITALS: BP 128/54
[2019-03-12] MEDS ORDERED: piperacillin/tazo 4.5gm/100ml 100 ML IV SCH (08:00)
[2019-03-12] MEDS: enoxaparin 30mg/0.3ml syringe SUBCUT SCH (08:37)
--- NOTE | 2019-03-12 13:47 | NUR ---
WOUND INFECTION EDUCATION PROVIDED BY WOUND CARE 1. Patient instructed to call their primary doctor, or go the ED immediately if any of the following symptoms occur: * Increased pain in wound * Increase in drainage from the wound * Redness in the skin surrounding the wound * Warmth in the skin surrounding the wound * Bleeding from the wound * Temperature of 101 or greater 2. If any of these occur while in the hospital tell a nurse immediately. DIABETIC FOOT CARE EDUCATION PROVIDED BY WOUND CARE * Wash your feet daily with lukewarm water and soap. * Dry your feet well, especially between the toes. * Keep the skin moisturized with lotion, but do not apply it between the toes. * Check your feet for blisters, cuts or sores. * Use an emery board to shape your toenails even with the ends of your toes. * Change daily into clean, soft socks or stockings, not too big or too small. * Keep your feet warm and dry. * Preferably wear special padded socks and shoes that fit well. * Never walk barefoot indoors or outdoors. * Examine your shoes everyday for cracks, roula, nails or anything that could hurt your feet. * Tell your doctor if you find any of these problems or have any concerns after examining your feet. Addendum: 03/12/19 at 1348 by Lukas Lynn RN Amended: Links added.
--- NOTE | 2019-03-12 13:49 | NUR ---
Problems reprioritized. Patient report given, questions answered & plan of care reviewed with Lissette COE.
--- NOTE | 2019-03-12 13:58 | NUR ---
received report from Ramandeep Hummel RN
--- NOTE | 2019-03-12 16:55 | NUR ---
Pt with A1c 7.7 admit for recurring cellulitis/osteomyelitis left ankle/foot. Pt seen at beside with daughter present provided with written and verbal protein education with written DM education with referral to outpatient DM class and RD contact information. Pt previously admitted and seen by RD in December where pt was provided with verbal review of DM education. Pt reports a fluctuating appetite stating it was low at lunch. Pt reports drinking Glucerna BIDBD at home and requests Glucerna during admission, to d/w RN. Pt reports difficulty chewing d/t missing teeth and agrees to chop all TID which is how he eats at home per daughter, d/w dietary. Will continue to follow. Addendum: 03/12/19 at [address]ñoz RD Amended: Links added.
--- NOTE | 2019-03-12 18:10 | NUR ---
RECEIVED REPORT FROM HOUSTON COE AND ASSUMED PATIENT CARE
[2019-03-12 18:11] VITALS: BP 145/71
[2019-03-12] MEDS: insulin Lispro (HumaLOG) vial - multi-dose SQ SCH (18:34)
--- NOTE | 2019-03-12 18:45 | NUR ---
MED REC NOT COMPLETED YET. PAGED DR. HARVEY.
[2019-03-12] MEDS: insulin glargine (Lantus) pen - multi-dose SQ SCH (21:03)
[2019-03-12] MEDS: tamsulosin 0.4mg capsule PO SCH (21:04)
[2019-03-12] MEDS: lactobacillus rhamnosus 10,000 MMU CELLS/CAPSULE PO SCH (21:04)
[2019-03-12 22:04] VITALS: BP 143/71
[2019-03-13] MEDS: vancomycin/NS 1 GM ADD-VANTAGE 250 ML IV SCH ×3 (04:25→17:20)
[2019-03-13 06:00] VITALS: BP 151/68
[2019-03-13 06:07] LABS: BASOPHILS # (AUTO) 0.1 X10'3 (0-0.2); BASOPHILS % (AUTO) 0.8 % (0-1); EOSINOPHILS # (AUTO) 0.1 X10'3 (0-0.9); EOSINOPHILS % (AUTO) 0.8 % (0-6); HEMATOCRIT 37.4 % (42.0-52.0); HEMOGLOBIN 12.5 g/dl (14.0-17.9); LYMPHOCYTES # (AUTO) 0.5 X10'3 (1.1-4.8); LYMPHOCYTES % (AUTO) 4.9 % (21-51); MEAN CORPUSCULAR HEMOGLOBIN 30.4 PG (27.0-31.0); MEAN CORPUSCULAR HGB CONC 33.4 g/dL (33.0-36.5); MEAN PLATELET VOLUME 7.9 FL (7.4-10.4); MONOCYTES # (AUTO) 0.9 X10'3 (0-0.9); MONOCYTES % (AUTO) 8.1 % (2-12); NEUTROPHILS # (AUTO) 9.2 X10'3 (1.8-7.7); NEUTROPHILS % (AUTO) 85.4 % (42-75); PLATELET COUNT 306 X10'3 (140-440); RED BLOOD COUNT 4.11 X10'6 (4.70-6.10); RED CELL DISTRIBUTION WIDTH 15.2 % (11.5-14.5); WHITE BLOOD COUNT 10.7 X10'3 (4.5-11.0)
[2019-03-13 06:12] LABS: ALBUMIN 2.2 G/DL (3.4-5.0); ANION GAP 14 (8-16); CALCIUM 8.6 MG/DL (8.5-10.1); CHLORIDE 99 MMOL/L (99-107); GLUCOSE 136 MG/DL (70-104); POTASSIUM 4.2 MMOL/L (3.5-5.1); SODIUM 132 MMOL/L (135-145); TOTAL CARBON DIOXIDE 19.1 MMOL/L (24-32); eGFR 60 ML/MIN
--- NOTE | 2019-03-13 06:12 | NUR ---
REPORT GIVEN TO JANET COE
[2019-03-13 06:29] LABS: BLOOD UREA NITROGEN 17 MG/DL (7-18); BUN/CREATININE RATIO 14.2 (5.4-32.0)
[2019-03-13] MEDS: ondansetron/PF 4mg/2ml inj IV PRN (07:57)
[2019-03-13] MEDS: CefTRIAXone 2gm/D5W 50ml 50 ML IV SCH (08:05)
[2019-03-13 10:00] VITALS: BP 159/74
[2019-03-13] MEDS ORDERED: LIDOcaine 2% 10ml TOPICAL JELLY (Urojet) MM ONE (10:45)
[2019-03-13] MEDS: lactobacillus rhamnosus 10,000 MMU CELLS/CAPSULE PO SCH ×2 (12:20→20:05)
[2019-03-13] MEDS: enoxaparin 30mg/0.3ml syringe SUBCUT SCH (12:21)
[2019-03-13] MEDS: aspirin 81mg tablet.DR PO SCH (12:21)
[2019-03-13] MEDS: atorvastatin 20mg tablet PO SCH (12:22)
[2019-03-13] MEDS: lisinopril 20mg tablet PO SCH (12:28)
[2019-03-13] MEDS ORDERED: iohexol 350MG/ML 100ml bottle IV ONE ×2 (16:08→16:39)
[2019-03-13 18:00] VITALS: BP 143/64
--- NOTE | 2019-03-13 18:20 | NUR ---
Received report from Amaya COE. Assumed care of patient.
[2019-03-13] MEDS: insulin Lispro (HumaLOG) vial - multi-dose SQ SCH (19:04)
[2019-03-13] MEDS: tamsulosin 0.4mg capsule PO SCH (20:05)
[2019-03-13] MEDS: insulin glargine (Lantus) pen - multi-dose SQ SCH (21:04)
[2019-03-13 22:00] VITALS: BP 136/58
[2019-03-14 05:47] LABS: BASOPHILS # (AUTO) 0.1 X10'3 (0-0.2); BASOPHILS % (AUTO) 1.1 % (0-1); EOSINOPHILS # (AUTO) 0.1 X10'3 (0-0.9); EOSINOPHILS % (AUTO) 0.8 % (0-6); HEMATOCRIT 37.2 % (42.0-52.0); HEMOGLOBIN 12.9 g/dl (14.0-17.9); LYMPHOCYTES # (AUTO) 0.6 X10'3 (1.1-4.8); LYMPHOCYTES % (AUTO) 6.1 % (21-51); MEAN CORPUSCULAR HEMOGLOBIN 30.9 PG (27.0-31.0); MEAN CORPUSCULAR HGB CONC 34.6 g/dL (33.0-36.5); MEAN CORPUSCULAR VOLUME 89.3 FL (78-98); MEAN PLATELET VOLUME 7.7 FL (7.4-10.4); MONOCYTES # (AUTO) 1.2 X10'3 (0-0.9); NEUTROPHILS # (AUTO) 8.7 X10'3 (1.8-7.7); PLATELET COUNT 322 X10'3 (140-440); RED BLOOD COUNT 4.17 X10'6 (4.70-6.10); RED CELL DISTRIBUTION WIDTH 15.3 % (11.5-14.5); WHITE BLOOD COUNT 10.7 X10'3 (4.5-11.0)
[2019-03-14 05:55] LABS: ALBUMIN 2.2 G/DL (3.4-5.0); ANION GAP 12 (8-16); BLOOD UREA NITROGEN 13 MG/DL (7-18); BUN/CREATININE RATIO 11.2 (5.4-32.0); CALCIUM 8.5 MG/DL (8.5-10.1); CHLORIDE 100 MMOL/L (99-107); CREATININE 1.16 MG/DL (0.60-1.10); GLUCOSE 117 MG/DL (70-104); POTASSIUM 4.2 MMOL/L (3.5-5.1); SODIUM 134 MMOL/L (135-145); TOTAL CARBON DIOXIDE 22.1 MMOL/L (24-32); eGFR 62 ML/MIN
[2019-03-14 06:00] VITALS: BP 129/59
--- NOTE | 2019-03-14 06:25 | NUR ---
Report given to Rosalinda COE.
--- NOTE | 2019-03-14 06:40 | NUR ---
Patient in room ORTHO 4016. I have received report from Eileen COE and had the opportunity to ask questions and assume patient care.
[2019-03-14] MEDS: CefTRIAXone 2gm/D5W 50ml 50 ML IV SCH (07:54)
[2019-03-14] MEDS: atorvastatin 20mg tablet PO SCH (07:54)
[2019-03-14] MEDS: lactobacillus rhamnosus 10,000 MMU CELLS/CAPSULE PO SCH ×2 (07:55→20:50)
[2019-03-14] MEDS: lisinopril 20mg tablet PO SCH (07:55)
[2019-03-14] MEDS: aspirin 81mg tablet.DR PO SCH (07:55)
[2019-03-14] MEDS: enoxaparin 30mg/0.3ml syringe SUBCUT SCH (07:56)
[2019-03-14 10:00] VITALS: BP 129/45
[2019-03-14] MEDS: NUT.TX.GLUC.INTOLER,LAC-FR,SOY (GLUCERNA) 237 ML PO SCH ×2 (13:00→18:00)
[2019-03-14] MEDS: insulin Lispro (HumaLOG) vial - multi-dose SQ SCH ×2 (13:41→18:49)
[2019-03-14] MEDS ORDERED: VANCOMYCIN LEVEL IV ONE (15:30)
--- NOTE | 2019-03-14 16:14 | NUR ---
TC from RN: Pt requests Wilmer; MALGORZATA notified MD and currently pending MD verification of ONS this AM. Addendum: 03/14/19 at [address] Amended: Links added.
[2019-03-14 18:00] VITALS: BP 150/65
--- NOTE | 2019-03-14 18:25 | NUR ---
Problems reprioritized. Patient report given, questions answered & plan of care reviewed with Juanis COE.
[2019-03-14] MEDS: ondansetron/PF 4mg/2ml inj IV PRN (19:01)
[2019-03-14] MEDS: tamsulosin 0.4mg capsule PO SCH (20:50)
[2019-03-14] MEDS: insulin glargine (Lantus) pen - multi-dose SQ SCH (20:53)
[2019-03-14 22:00] VITALS: BP 127/58
[2019-03-15] MEDS ORDERED: VANCOMYCIN LEVEL IV ONE (03:30)
[2019-03-15 05:27] LABS: BASOPHILS # (AUTO) 0.1 X10'3 (0-0.2); BASOPHILS % (AUTO) 0.6 % (0-1); EOSINOPHILS # (AUTO) 0.1 X10'3 (0-0.9); HEMATOCRIT 38.6 % (42.0-52.0); HEMOGLOBIN 13.1 g/dl (14.0-17.9); LYMPHOCYTES # (AUTO) 0.7 X10'3 (1.1-4.8); LYMPHOCYTES % (AUTO) 7.4 % (21-51); MEAN CORPUSCULAR HEMOGLOBIN 30.6 PG (27.0-31.0); MEAN CORPUSCULAR HGB CONC 34.1 g/dL (33.0-36.5); MEAN CORPUSCULAR VOLUME 89.8 FL (78-98); MONOCYTES # (AUTO) 0.9 X10'3 (0-0.9); NEUTROPHILS # (AUTO) 8.2 X10'3 (1.8-7.7); PLATELET COUNT 307 X10'3 (140-440); RED BLOOD COUNT 4.29 X10'6 (4.70-6.10); RED CELL DISTRIBUTION WIDTH 15.7 % (11.5-14.5); WHITE BLOOD COUNT 9.9 X10'3 (4.5-11.0)
[2019-03-15 05:30] LABS: ALBUMIN 2.2 G/DL (3.4-5.0); ANION GAP 14 (8-16); BLOOD UREA NITROGEN 16 MG/DL (7-18); CALCIUM 8.5 MG/DL (8.5-10.1); CHLORIDE 101 MMOL/L (99-107); CREATININE 1.14 MG/DL (0.60-1.10); GLUCOSE 147 MG/DL (70-104); POTASSIUM 4.1 MMOL/L (3.5-5.1); SODIUM 136 MMOL/L (135-145); TOTAL CARBON DIOXIDE 21.3 MMOL/L (24-32); eGFR 63 ML/MIN
[2019-03-15 06:00] VITALS: BP 155/76
--- NOTE | 2019-03-15 06:00 | NUR ---
Patient in room ORTHO 4016. I have received report from Juanis COE and had the opportunity to ask questions and assume patient care.
[2019-03-15] MEDS: atorvastatin 20mg tablet PO SCH (07:57)
[2019-03-15] MEDS: enoxaparin 30mg/0.3ml syringe SUBCUT SCH (07:57)
[2019-03-15] MEDS: NUT.TX.GLUC.INTOLER,LAC-FR,SOY (GLUCERNA) 237 ML PO SCH ×3 (07:58→18:54)
[2019-03-15] MEDS: lisinopril 20mg tablet PO SCH (07:58)
[2019-03-15] MEDS: aspirin 81mg tablet.DR PO SCH (07:59)
[2019-03-15] MEDS: lactobacillus rhamnosus 10,000 MMU CELLS/CAPSULE PO SCH ×2 (08:00→20:58)
[2019-03-15] MEDS: insulin Lispro (HumaLOG) vial - multi-dose SQ SCH ×4 (08:44→21:16)
[2019-03-15 10:00] VITALS: BP 131/61
[2019-03-15] MEDS ORDERED: ipratropium/albuterol 3ml nebule NEB PRN (10:20)
[2019-03-15] MEDS: CefTRIAXone/D5W-Rocephin 1gm 50 ML IV SCH (11:58)
[2019-03-15 18:00] VITALS: BP 162/72
--- NOTE | 2019-03-15 18:24 | NUR ---
Problems reprioritized. Patient report given, questions answered & plan of care reviewed with Prudence RN.
--- NOTE | 2019-03-15 18:45 | NUR ---
Patient in room ORTHO 4016. I have received report from Rosalinda COE and had the opportunity to ask questions and assume patient care. patient is with the daughter in the room.
[2019-03-15] MEDS: diphenhydrAMINE 25mg capsule PO PRN (19:09)
[2019-03-15] MEDS: tamsulosin 0.4mg capsule PO SCH (20:58)
[2019-03-15] MEDS: insulin glargine (Lantus) pen - multi-dose SQ SCH (21:18)
[2019-03-15] MEDS ORDERED: temazepam 15mg capsule PO PRN (21:50)
[2019-03-15 22:00] VITALS: BP 148/68
[2019-03-15] MEDS: HYDROcodone/acetaminophen 10/325mg tab PO PRN (22:22)
[2019-03-16 06:00] VITALS: BP 135/56
[2019-03-16 06:02] LABS: BASOPHILS # (AUTO) 0.1 X10'3 (0-0.2); BASOPHILS % (AUTO) 0.7 % (0-1); EOSINOPHILS # (AUTO) 0.1 X10'3 (0-0.9); EOSINOPHILS % (AUTO) 1.6 % (0-6); HEMATOCRIT 38.5 % (42.0-52.0); HEMOGLOBIN 13.2 g/dl (14.0-17.9); LYMPHOCYTES % (AUTO) 10.5 % (21-51); MEAN CORPUSCULAR HEMOGLOBIN 30.8 PG (27.0-31.0); MEAN CORPUSCULAR HGB CONC 34.3 g/dL (33.0-36.5); MEAN CORPUSCULAR VOLUME 89.9 FL (78-98); MEAN PLATELET VOLUME 7.9 FL (7.4-10.4); MONOCYTES # (AUTO) 0.9 X10'3 (0-0.9); NEUTROPHILS # (AUTO) 7.1 X10'3 (1.8-7.7); NEUTROPHILS % (AUTO) 77.2 % (42-75); PLATELET COUNT 302 X10'3 (140-440); RED BLOOD COUNT 4.28 X10'6 (4.70-6.10); WHITE BLOOD COUNT 9.2 X10'3 (4.5-11.0)
[2019-03-16 06:11] LABS: ALBUMIN 2.3 G/DL (3.4-5.0); ANION GAP 10 (8-16); BLOOD UREA NITROGEN 14 MG/DL (7-18); BUN/CREATININE RATIO 12.3 (5.4-32.0); CALCIUM 8.7 MG/DL (8.5-10.1); CHLORIDE 101 MMOL/L (99-107); CREATININE 1.14 MG/DL (0.60-1.10); GLUCOSE 136 MG/DL (70-104); POTASSIUM 4.1 MMOL/L (3.5-5.1); SODIUM 134 MMOL/L (135-145); TOTAL CARBON DIOXIDE 22.6 MMOL/L (24-32); eGFR 63 ML/MIN
--- NOTE | 2019-03-16 06:20 | NUR ---
Patient in room ORTHO 4016. I have received report from Lisandra and had the opportunity to ask questions and assume patient care.
--- NOTE | 2019-03-16 06:33 | NUR ---
Problems reprioritized. Patient report given, questions answered & plan of care reviewed with Alem RN.Patient is resting and denies having pain.
[2019-03-16] MEDS: NUT.TX.GLUC.INTOLER,LAC-FR,SOY (GLUCERNA) 237 ML PO SCH ×3 (08:07→18:02)
[2019-03-16] MEDS: CefTRIAXone/D5W-Rocephin 1gm 50 ML IV SCH (08:16)
[2019-03-16] MEDS: atorvastatin 20mg tablet PO SCH (08:17)
[2019-03-16] MEDS: lisinopril 20mg tablet PO SCH (08:17)
[2019-03-16] MEDS: lactobacillus rhamnosus 10,000 MMU CELLS/CAPSULE PO SCH ×2 (08:17→21:12)
[2019-03-16] MEDS: aspirin 81mg tablet.DR PO SCH (08:18)
[2019-03-16] MEDS: enoxaparin 30mg/0.3ml syringe SUBCUT SCH (08:18)
[2019-03-16] MEDS: insulin Lispro (HumaLOG) vial - multi-dose SQ SCH ×3 (08:28→19:01)
[2019-03-16 10:00] VITALS: BP 152/63
[2019-03-16] MEDS ORDERED: piperacillin/tazo 3.375gm/50ml 50 ML IV SCH (16:00)
[2019-03-16] MEDS: diphenhydrAMINE 25mg capsule PO PRN (17:57)
[2019-03-16 18:00] VITALS: BP 158/78
--- NOTE | 2019-03-16 18:14 | NUR ---
Problems reprioritized. Patient report given, questions answered & plan of care reviewed with
--- NOTE | 2019-03-16 18:51 | NUR ---
Patient in room ORTHO 4016. I have received report from Tonia COE and had the opportunity to ask questions and assume patient care.
--- NOTE | 2019-03-16 19:58 | NUR ---
Patient to have surgery in the A.M. at [address] De Leon, no pre-op abx ordered. Spoke to charge on surgical floor about calling him. She stated "he will take care of it in the morning". Assmt completed and documented. Patient stated wants "this over with". Has been a problem for a long time and just wants it taken care of (ampultation)
[2019-03-16] MEDS: tamsulosin 0.4mg capsule PO SCH (21:12)
[2019-03-16] MEDS: insulin glargine (Lantus) pen - multi-dose SQ SCH (21:18)
[2019-03-16 22:00] VITALS: BP 142/56
[2019-03-17] VITALS (17 sets, daily range): BP systolic 104–169; BP diastolic 50–83
--- NOTE | 2019-03-17 06:00 | NUR ---
Patient in room ORTHO 4016. I have received report from Lary and had the opportunity to ask questions and assume patient care.
--- NOTE | 2019-03-17 06:00 | NUR ---
Pre op bathing done early in shift and made NPO at midnight as ordered. Slept most of the night with brief periods of being awake. Denied pain through the night. report to early shift RN
[2019-03-17 06:42] LABS: BASOPHILS # (AUTO) 0.1 X10'3 (0-0.2); BASOPHILS % (AUTO) 0.6 % (0-1); EOSINOPHILS # (AUTO) 0.1 X10'3 (0-0.9); EOSINOPHILS % (AUTO) 0.7 % (0-6); HEMOGLOBIN 13.7 g/dl (14.0-17.9); LYMPHOCYTES # (AUTO) 0.9 X10'3 (1.1-4.8); LYMPHOCYTES % (AUTO) 8.8 % (21-51); MEAN CORPUSCULAR HEMOGLOBIN 30.8 PG (27.0-31.0); MEAN CORPUSCULAR HGB CONC 34.3 g/dL (33.0-36.5); MEAN PLATELET VOLUME 7.9 FL (7.4-10.4); MONOCYTES # (AUTO) 0.9 X10'3 (0-0.9); MONOCYTES % (AUTO) 8.6 % (2-12); NEUTROPHILS # (AUTO) 8.5 X10'3 (1.8-7.7); NEUTROPHILS % (AUTO) 81.3 % (42-75); PLATELET COUNT 311 X10'3 (140-440); RED BLOOD COUNT 4.45 X10'6 (4.70-6.10); RED CELL DISTRIBUTION WIDTH 15.2 % (11.5-14.5); WHITE BLOOD COUNT 10.5 X10'3 (4.5-11.0)
[2019-03-17 06:52] LABS: ALBUMIN 2.5 G/DL (3.4-5.0); ANION GAP 12 (8-16); BLOOD UREA NITROGEN 17 MG/DL (7-18); BUN/CREATININE RATIO 14.8 (5.4-32.0); CALCIUM 8.9 MG/DL (8.5-10.1); CHLORIDE 101 MMOL/L (99-107); CREATININE 1.15 MG/DL (0.60-1.10); GLUCOSE 147 MG/DL (70-104); POTASSIUM 4.5 MMOL/L (3.5-5.1); SODIUM 136 MMOL/L (135-145); TOTAL CARBON DIOXIDE 23.5 MMOL/L (24-32); eGFR 63 ML/MIN
--- NOTE | 2019-03-17 07:40 | NUR ---
received call from OR, fluids hung, pt will be picked up within approx. 15 minutes
[2019-03-17] MEDS: ringers solution, lacted 1,000 ML IV SCH ×2 (07:49→19:57)
--- NOTE | 2019-03-17 07:59 | NUR ---
Pt transported to OR
[2019-03-17] MEDS: enoxaparin 30mg/0.3ml syringe SUBCUT SCH (08:00)
[2019-03-17] MEDS: NUT.TX.GLUC.INTOLER,LAC-FR,SOY (GLUCERNA) 237 ML PO SCH ×3 (08:00→17:54)
[2019-03-17] MEDS: atorvastatin 20mg tablet PO SCH (08:00)
[2019-03-17] MEDS: lactobacillus rhamnosus 10,000 MMU CELLS/CAPSULE PO SCH ×2 (08:00→21:07)
[2019-03-17] MEDS: lisinopril 20mg tablet PO SCH (08:00)
[2019-03-17] MEDS ORDERED: ringers solution, lacted 1,000 ML IV SCH (08:14)
[2019-03-17] MEDS ORDERED: meperidine/PF 25mg/ml syringe IV PRN ×3 (08:15)
[2019-03-17] MEDS ORDERED: proCHLORperazine 10 MG/2 ml inj IV PRN (08:15)
[2019-03-17] MEDS ORDERED: ondansetron/PF 4mg/2ml inj IV PRN (08:15)
[2019-03-17] MEDS ORDERED: fentaNYL/PF 50MCG/1 ML 2ML syringe ONE (08:18)
[2019-03-17] MEDS ORDERED: midazolam 2 mg/2 ml injection ONE (08:18)
[2019-03-17] MEDS: aspirin 81mg tablet.DR PO SCH (08:30)
[2019-03-17] MEDS ORDERED: ceFAZolin 1000mg inj ONE ×2 (08:35→08:36)
[2019-03-17] MEDS ORDERED: ceFAZolin 1000mg inj IR ONE (09:00)
--- NOTE | 2019-03-17 09:50 | NUR ---
Received from OR via ORTHO BED, accompanied by Anesthesiologist DR. ALAMO and report given by Anesthesiolgist. PT ARRIVED AWAKE O2 AT 2L NC, DENIES PAIN. MOVES UPPER EXT WELL WITH SPINAL SENSATION TO LOWER EXT TO MID ABD. STUMP SOCK CDI. FEMORAL PULSES WNL. FC NOTED WITH CLEAR YELLOW URINE.
--- NOTE | 2019-03-17 10:25 | NUR ---
Patient in room ORTHO 4016. I have received report from recovery and had the opportunity to ask questions and assume patient care.
--- NOTE | 2019-03-17 10:30 | NUR ---
Report called to receiving nurse DAVE COE. Transferred via ORTHO BED TO ROOM 4018L. Belongings = NONE BROUGHT TO THE RR. VSS ON 2L NC ON TRANSFER. DAUGHTER IN ROOM WAITING FOR PT ON ARRIVAL TO 4TH FLOOR. Special Issues communicated to receiving nurse.
--- NOTE | 2019-03-17 10:32 | NUR ---
Pt arrived on the floor post op
[2019-03-17] MEDS: insulin Lispro (HumaLOG) vial - multi-dose SQ SCH ×2 (13:24→21:18)
[2019-03-17] MEDS: diphenhydrAMINE 25mg capsule PO PRN (13:40)
--- NOTE | 2019-03-17 15:02 | NUR ---
PAGER ID: [phone] MESSAGE: Alessandro Alanis, Mr. Cotton in 4017 is very painful. Are we able to have something for breakthrough pain? Only a Hope 5mg is on the eMAR. Thank you Tonia
[2019-03-17] MEDS ORDERED: HYDROcodone/acetaminophen 10/325mg tab PO PRN (15:20)
--- NOTE | 2019-03-17 17:09 | NUR ---
Initial: Patient is s/p left WARREN today on 03/17; admitted with chronic cellulitis and osteomyelitis of left leg. History of PVD, UTI, DM, CKD. Prior to surgery patient was drinking 75-100% of glucerna with meals. PO intake of meals very poor, eating 25% average of carb controlled meals. Attempted bedside visit, patient sleeping after AKA, RD will see tomorrow for food preferences in view of poor PO and encourage intake of protein foods for wound healing. Recommend: 1. continue carb controlled diet 2. continue glucerna TID with meals 3. Encourage PO Intake of protein containing foods, poor appetite 4. weight per rx Addendum: 03/17/19 at [address] Amended: Links added.
[2019-03-17] MEDS: HYDROmorphone inj. 0.5 MG/0.5 ML DISP.SYRIN IV PRN (17:29)
--- NOTE | 2019-03-17 18:12 | NUR ---
Problems reprioritized. Patient report given, questions answered & plan of care reviewed with
--- NOTE | 2019-03-17 18:52 | NUR ---
Patient in room ORTHO 4016. I have received report from Tonia COE and had the opportunity to ask questions and assume patient care.
--- NOTE | 2019-03-17 19:07 | NUR ---
Refused diet tonight. No nutritional or correctional coverage given. Will check BG at bedtime and give lantus
[2019-03-17] MEDS: tamsulosin 0.4mg capsule PO SCH (21:06)
[2019-03-17] MEDS: HYDROcodone/acetaminophen 10/325mg tab PO PRN (21:09)
[2019-03-17] MEDS: insulin glargine (Lantus) pen - multi-dose SQ SCH (21:12)
[2019-03-18 02:00] VITALS: BP 154/73
[2019-03-18] MEDS: HYDROcodone/acetaminophen 10/325mg tab PO PRN (05:58)
[2019-03-18 06:00] VITALS: BP 155/79
--- NOTE | 2019-03-18 06:09 | NUR ---
received report from denita storm
--- NOTE | 2019-03-18 06:21 | NUR ---
Problems reprioritized. Patient report given, questions answered & plan of care reviewed with JA COE.
[2019-03-18] MEDS: ringers solution, lacted 1,000 ML IV SCH ×3 (07:56→16:42)
[2019-03-18] MEDS: HYDROmorphone inj. 0.5 MG/0.5 ML DISP.SYRIN IV PRN ×4 (08:01→23:02)
[2019-03-18] MEDS: lisinopril 20mg tablet PO SCH (08:03)
[2019-03-18] MEDS: aspirin 81mg tablet.DR PO SCH (08:03)
[2019-03-18] MEDS: atorvastatin 20mg tablet PO SCH (08:04)
[2019-03-18] MEDS: lactobacillus rhamnosus 10,000 MMU CELLS/CAPSULE PO SCH ×2 (08:04→21:27)
[2019-03-18] MEDS: enoxaparin 30mg/0.3ml syringe SUBCUT SCH (08:05)
[2019-03-18] MEDS: NUT.TX.GLUC.INTOLER,LAC-FR,SOY (GLUCERNA) 237 ML PO SCH ×3 (08:34→18:00)
[2019-03-18] MEDS: insulin Lispro (HumaLOG) vial - multi-dose SQ SCH ×2 (08:43→13:59)
[2019-03-18 10:00] VITALS: BP 139/68
--- NOTE | 2019-03-18 12:07 | NUR ---
Reassessment: Pt seen by MALGORZATA for verbal high protein reinforcement given PO 0-25% meals and mostly only drinking Glucernas for nutrition. MALGORZATA encouraged importance of PO diet in addition to ONS in order to receive adequate nutrition for wound healing. Pt is agreeable to cottage cheese w/ fruit at lunches. LBM 03/14; pt does not complain of constipation. MALGORZATA [email or web address] MD regarding MVI for wound healing as well as routine bowel care post-op per MD approval since on dilaudid. Will continue to monitor. Recommend: 1. continue carb controlled diet; cottage cheese and fruit w/ lunches 2. continue glucerna TID with meals 3. Encourage PO Intake of protein containing foods, poor appetite 4. weight per rx Addendum: 03/18/19 at [address] Amended: Links added.
[2019-03-18 18:00] VITALS: BP 151/74
--- NOTE | 2019-03-18 18:08 | NUR ---
Gave report to denita storm
--- NOTE | 2019-03-18 18:10 | NUR ---
Patient in room ORTHO 4016. I have received report from Arleth COE and had the opportunity to ask questions and assume patient care.
[2019-03-18] MEDS: diphenhydrAMINE 25mg capsule PO PRN (18:12)
[2019-03-18] MEDS: insulin glargine (Lantus) pen - multi-dose SQ SCH (21:26)
[2019-03-18] MEDS: tamsulosin 0.4mg capsule PO SCH (21:28)
--- NOTE | 2019-03-19 00:26 | NUR ---
1196 Patient medicated with dilaudid and Complete bed bath, shampoo given and linen changed. Tolerated well and stated feeling much better now. Positioned with stump up on pillow and on back at this time. Call light in reach.
[2019-03-19] MEDS: HYDROmorphone inj. 0.5 MG/0.5 ML DISP.SYRIN IV PRN (05:56)
[2019-03-19 06:35] VITALS: BP 120/68
--- NOTE | 2019-03-19 06:37 | NUR ---
Problems reprioritized. Patient report given, questions answered & plan of care reviewed with Lissette COE.
--- NOTE | 2019-03-19 06:45 | NUR ---
Dilaudid wasted in omni cell. IV infiltrated
--- NOTE | 2019-03-19 07:08 | NUR ---
Patient in room ORTHO 4016. I have received report from Lary COE and had the opportunity to ask questions and assume patient care.
[2019-03-19 07:45] VITALS: BP 124/79
[2019-03-19 07:52] VITALS: BP 124/79
[2019-03-19] MEDS: NUT.TX.GLUC.INTOLER,LAC-FR,SOY (GLUCERNA) 237 ML PO SCH ×2 (08:30→13:00)
[2019-03-19] MEDS: insulin Lispro (HumaLOG) vial - multi-dose SQ SCH ×2 (09:16→14:39)
[2019-03-19] MEDS: enoxaparin 30mg/0.3ml syringe SUBCUT SCH (09:18)
[2019-03-19] MEDS: atorvastatin 20mg tablet PO SCH (09:22)
[2019-03-19] MEDS: lactobacillus rhamnosus 10,000 MMU CELLS/CAPSULE PO SCH (09:23)
[2019-03-19] MEDS: aspirin 81mg tablet.DR PO SCH (09:24)
[2019-03-19] MEDS: lisinopril 20mg tablet PO SCH (09:26)
[2019-03-19] MEDS: ringers solution, lacted 1,000 ML IV SCH (09:40)
[2019-03-19 10:00] VITALS: BP 130/69
--- NOTE | 2019-03-19 10:37 | NUR ---
Plan transfer to rehab today, ok to leave iv out per Dr Alanis
[2019-03-19] MEDS ORDERED: HYDROcodone/acetaminophen 10/325mg tab PO PRN (11:10)
--- NOTE | 2019-03-19 11:35 | NUR ---
Student Medication Administration:For this medication-pass time frame 4105-5173, all medications were reviewed, administered and documented per hospital policy by Diane Moreira. Student documentation:I have reviewed and agree with all interventions, assessments performed and documented by Diane Moreira.
--- NOTE | 2019-03-19 12:06 | NUR ---
Problems reprioritized. Patient report given, questions answered & plan of care reviewed with CAROLIN Mclaughlin.
== END 2019-03-19 15:25 | DRG 239 ==
LOC: ER 21:22 → ED HOLD 03-12 00:38 → ORTHO 4S 03-12 00:45
PROVIDERS: ADMIT Hospitalist; ATTEND Family Medicine
PROC: 0Y6D0Z3 Detachment at Left Upper Leg, Low, Open Approach (ICD-10-PCS; principal; 2019-03-17 08:17)
DX: E11.51 Type 2 diabetes mellitus with diabetic peripheral angiopathy without gangrene (principal); E43 Unspecified severe protein-calorie malnutrition; L97.329 Non-pressure chronic ulcer of left ankle with unspecified severity; L03.116 Cellulitis of left lower limb; E87.1 Hypo-osmolality and hyponatremia; I13.0 Hypertensive heart and chronic kidney disease with heart failure and stage 1 through stage 4 chronic kidney disease, or unspecified chronic kidney disease; I50.22 Chronic systolic (congestive) heart failure; N39.0 Urinary tract infection, site not specified; M86.672 Other chronic osteomyelitis, left ankle and foot; E11.622 Type 2 diabetes mellitus with other skin ulcer; E11.69 Type 2 diabetes mellitus with other specified complication; E11.22 Type 2 diabetes mellitus with diabetic chronic kidney disease; E11.42 Type 2 diabetes mellitus with diabetic polyneuropathy; F32.9 Major depressive disorder, single episode, unspecified; N13.9 Obstructive and reflux uropathy, unspecified; E78.00 Pure hypercholesterolemia, unspecified; E78.5 Hyperlipidemia, unspecified; I25.10 Atherosclerotic heart disease of native coronary artery without angina pectoris; S81.802A Unspecified open wound, left lower leg, initial encounter; I25.2 Old myocardial infarction; B96.5 Pseudomonas (aeruginosa) (mallei) (pseudomallei) as the cause of diseases classified elsewhere; I25.5 Ischemic cardiomyopathy; I48.91 Unspecified atrial fibrillation; J06.9 Acute upper respiratory infection, unspecified; J44.9 Chronic obstructive pulmonary disease, unspecified; K21.9 Gastro-esophageal reflux disease without esophagitis; N18.9 Chronic kidney disease, unspecified; Z82.49 Family history of ischemic heart disease and other diseases of the circulatory system; Z83.3 Family history of diabetes mellitus; Z86.73 Personal history of transient ischemic attack (TIA), and cerebral infarction without residual deficits; Z95.1 Presence of aortocoronary bypass graft; Z95.810 Presence of automatic (implantable) cardiac defibrillator; Z68.22 Body mass index [BMI] 22.0-22.9, adult; Z88.5 Allergy status to narcotic agent; Z89.611 Acquired absence of right leg above knee; Z79.899 Other long term (current) drug therapy; Z89.421 Acquired absence of other right toe(s); Z89.422 Acquired absence of other left toe(s)
CPT/HCPCS: 36415; 71045; 73610; 73706; 80048; 80053; 80202; 81001; 82948; 83036; 83605; 84145; 85025; 85610; 85730; 87040; 87077; 87081; 87088; 87186; 88307; 88311; 93005; 94760; 96365; 97110; 97162; 97530; 99285; A4618; A6222; A6446; A6449; A6455; A7000; G0378; J0690; J0696; J1170; J1650; J1815; J2175; J2250; J2405; J2543; J3010; J3370; J7120; Q0163; Q9967

== ENCOUNTER 2021-06-12 19:05 | Inpatient (IN) | payer MEDICARE, OTHER ==
[~2021-06-12] VITALS: Ht 106.7 cm; Wt 68.2 kg
[~2021-06-12 19:05] MED LIST changes: -ACET-2119 PO; -BISA10SU60 RC; -CALC-1051 PO; +CARV3.12 PO; -CEPH-572 PO; +CLOP75TA15 PO; -FOLI0.4T14 PO; -INSU100I31 SUBCUT; +LACT1CAP26 PO; +LEVO250T43 PO; -LISI-600 PO; +LISI2.5T14 PO; -POLY17PO10 PO; -SLIDINGSCALE INSULIN SQ; -VITC500T PO; -ZINC220C11 PO; -[UNRECOGNIZED DRUG - OTHER] PO
[2021-06-12 19:43] LABS: BASOPHILS % (AUTO) 0.2 % (0-1); EOSINOPHILS % (AUTO) 0 % (0-6); HEMATOCRIT 39.1 % (42.0-52.0); HEMOGLOBIN 13.2 g/dl (14.0-17.9); LYMPHOCYTES # (AUTO) 0.4 X10'3 (1.1-4.8); LYMPHOCYTES % (AUTO) 2.5 % (21-51); MEAN CORPUSCULAR HGB CONC 33.7 g/dL (33.0-36.5); MEAN CORPUSCULAR VOLUME 91.9 FL (78-98); MEAN PLATELET VOLUME 9.3 FL (7.4-10.4); MONOCYTES # (AUTO) 1.1 X10'3 (0-0.9); MONOCYTES % (AUTO) 6.5 % (2-12); NEUTROPHILS # (AUTO) 15.7 X10'3 (1.8-7.7); NEUTROPHILS % (AUTO) 90.8 % (42-75); PLATELET COUNT 190 X10'3 (140-440); RED BLOOD COUNT 4.25 X10'6 (4.70-6.10); RED CELL DISTRIBUTION WIDTH 14.3 % (11.5-14.5); WHITE BLOOD COUNT 17.2 X10'3 (4.5-11.0)
[2021-06-12 19:55] LABS: ALANINE AMINOTRANSFERASE 40 U/L (12-78); ALBUMIN 2.8 G/DL (3.4-5.0); ALBUMIN/GLOBULIN RATIO 0.7 (1.1-1.5); ALKALINE PHOSPHATASE 102 IU/L (46-116); ANION GAP 12 (8-16); ASPARTATE AMINO TRANSFERASE 25 U/L (10-37); BILIRUBIN,TOTAL 1.9 MG/DL (0.1-1.0); BLOOD UREA NITROGEN 29 MG/DL (7-18); BUN/CREATININE RATIO 21.3 (5.4-32.0); CALCIUM 8.4 MG/DL (8.5-10.1); CHLORIDE 107 MMOL/L (99-107); CREATININE 1.36 MG/DL (0.60-1.10); GLUCOSE 195 MG/DL (70-104); POTASSIUM 4.4 MMOL/L (3.5-5.1); SODIUM 141 MMOL/L (135-145); TOTAL PROTEIN 6.8 G/DL (6.4-8.2); eGFR 51 ML/MIN
[2021-06-12] MEDS ORDERED: furosemide 10 MG/1 ML 10ml inj IV ONE (20:40)
[2021-06-12 21:26] LABS: ABG BASE EXCESS -3.1 mmol/L (-2.0-2.0); ABG HCO3 20.5 mmol/L (22.0-26.0); ABG OXYGEN SATURATION 92.6 % (94-97); ABG PCO2 (T) 32.3 mmHg (35.0-48.0); ABG PO2 (T) 66.8 mmHg (75.0-100.0); ALLEN'S TEST POSITIVE; FCOHb 0.8 % (0.0-3.9); FMetHb 0.3 % (0.0-1.5); FO2Hb 91.6 % (94-97); PATIENT TEMPERATURE 36.8; TOTAL HEMOGLOBIN 13.3 G/dl (14.0-18.0)
[2021-06-12] MEDS ORDERED: iohexol 350MG/ML 100ml bottle IV ONE (21:26)
[2021-06-12] MEDS ORDERED: REMDESIVIR INJ 200 MG in normal saline 100ml IV soln 100 ML IV ONE (21:55)
[2021-06-12 22:16] LABS: CLARITY,URINE CLOUDY (Clear); COLOR,URINE YELLOW (Yellow); GLUCOSE, URINE NEGATIVE (Neg); KETONES,URINE NEGATIVE (Neg); LEUKOCYTE ESTERASE ,URINE NEGATIVE (Neg); NITRITES, URINE POSITIVE (Neg); OCCULT BLOOD,URINE MODERATE (Neg); PH,URINE 5.5 (4.8-8.0); PROTEIN,URINE 100 mg/dl (Neg); UROBILINOGEN,URINE 0.2 E.U/dL (0.2-1.0)
[2021-06-12 22:24] LABS: UA COLLECTION TYPE FOLEY CATH
[2021-06-12 22:25] LABS: RBC,URINE 0-2 /HPF (0-2)
[2021-06-12 22:26] LABS: BACTERIA,URINE 4+ /HPF (Neg); SQUAMOUS EPITHELIAL CELL,UR FEW /LPF (FEW); WBC CLUMPS,URINE FEW /HPF (NEGATIVE)
[2021-06-12] MEDS ORDERED: LISI5TAB22 PO (22:32)
[2021-06-12] MEDS ORDERED: CARV6.253 PO (22:32)
[2021-06-12] MEDS ORDERED: PANT20TA18 PO (22:32)
[2021-06-12] MEDS ORDERED: INSU100I25 SQ (22:32)
[2021-06-13] VITALS (7 sets, daily range): BP systolic 122–172; BP diastolic 42–72
[2021-06-13] MEDS ORDERED: magnesium Cl slow-release 64mg tablet PO PRN
[2021-06-13] MEDS ORDERED: mag hydrox/Alum hydrox/simeth 30ml oral suspension PO PRN
[2021-06-13] MEDS ORDERED: ondansetron/PF 4mg/2ml inj IV PRN
[2021-06-13] MEDS ORDERED: magnesium 2GM in 50ml NS 50 ML IV PRN
[2021-06-13] MEDS ORDERED: magnesium 4gm in 100ml NS 100 ML IV PRN
[2021-06-13] MEDS ORDERED: potassium Cl 20 mEq SR tablet PO PRN ×2
[2021-06-13] MEDS ORDERED: potassium CL 10mEq/100ml bag 100 ML IV PRN
[2021-06-13] MEDS ORDERED: acetaminophen 325mg tablet PO PRN
[2021-06-13] MEDS ORDERED: REMDESIVIR INJ 200 MG in normal saline 100ml IV soln 100 ML IV ONE ×2
[2021-06-13] MEDS ORDERED: dextrose 50%-water 50ml dispensing syringe IV PRN ×2 (00:10)
[2021-06-13] MEDS ORDERED: DEXTROSE 15 GM of carb/4 tabs (each vial/BOTTLE has 4 tablets) PO PRN ×2 (00:10)
[2021-06-13] MEDS ORDERED: MESSAGE TO PHARMACY PO ONE (00:10)
[2021-06-13] MEDS ORDERED: glucagon, human recombinant 1mg kit SUBCUT PRN (00:10)
--- NOTE | 2021-06-13 00:52 | NUR ---
Patient in room ED 16. I have received report from CAROLIN Nguyen and had the opportunity to ask questions and assume patient care.
--- NOTE | 2021-06-13 01:00 | NUR ---
Patient in room ORTHO 4018. I have received report from CAROLIN Bowen and had the opportunity to ask questions and assume patient care.
[2021-06-13 01:03] LABS: D-DIMER 17.22 MG/L FEU (0-0.50)
--- NOTE | 2021-06-13 01:35 | NUR ---
Patient arrived to [facility] by lupe with 15liters oxygen via NRB mask on. He was assisted to the bed via 3 assistance and sliding board.
[2021-06-13 01:51] LABS: HEMOGLOBIN A1C 8.3 % (4.5-6.2)
[2021-06-13] MEDS ORDERED: carvedilol 6.25mg tablet PO STA (01:56)
[2021-06-13 02:36] LABS: C-REACTIVE PROTEIN 17.68 MG/DL (0.0-0.5); MAGNESIUM 1.8 MG/DL (1.5-2.4); POTASSIUM 4.2 MMOL/L (3.5-5.1)
--- NOTE | 2021-06-13 06:29 | NUR ---
Patient in room ORTHO 4018. I have received report from Juju COE and had the opportunity to ask questions and assume patient care.
--- NOTE | 2021-06-13 06:29 | NUR ---
Problems reprioritized. Patient report given, questions answered & plan of care reviewed with CAORLIN Sabillon.
[2021-06-13] MEDS: K and/or MAG REPLACEMENT MC SCH ×2 (08:00→19:51)
[2021-06-13] MEDS ORDERED: REMDESIVIR INJ 100 MG in normal saline 100ml IV soln 100 ML IV SCH (08:00)
[2021-06-13] MEDS: heparin, porcine 5000 units/ml vial SQ SCH ×2 (08:21→20:07)
[2021-06-13] MEDS: carvedilol 6.25mg tablet PO SCH ×2 (08:21→20:06)
[2021-06-13] MEDS: pregabalin 25mg capsule PO SCH ×2 (08:21→17:35)
[2021-06-13] MEDS: pregabalin 75mg capsule PO SCH ×2 (08:22→17:35)
[2021-06-13] MEDS: FLUoxetine 20mg capsule PO SCH (08:23)
[2021-06-13] MEDS: docusate sod 100mg capsule PO SCH ×2 (08:23→20:06)
[2021-06-13] MEDS: clopidogrel 75mg tablet PO SCH (08:23)
[2021-06-13] MEDS: lisinopril 5mg tablet PO SCH (08:23)
[2021-06-13] MEDS: pantoprazole 40mg Tablet.DR PO SCH (08:23)
[2021-06-13] MEDS: levoFLOXACIN 500mg tablet PO SCH (08:24)
[2021-06-13] MEDS: furosemide 40mg/4ml inj IV SCH ×2 (08:24→20:07)
[2021-06-13] MEDS: dexamethasone inj 6 MG in dextrose 5%-water 50ml 50 ML IV SCH ×2 (08:26→20:05)
[2021-06-13] MEDS: insulin Lispro (HumaLOG) vial - multi-dose SQ SCH ×4 (08:36→21:03)
--- NOTE | 2021-06-13 09:38 | NUR ---
PAGER ID: [phone] MESSAGE: Pradip Cotton patient six hour trip was 111, the twelve hour was 125 (critical value) Ramandeep [phone]
--- NOTE | 2021-06-13 10:31 | NUR ---
Malnutrition consult: Pt reports 2-13 lb wt loss with decreased appetite per malnutrition risk screen with RN. Current documented wt is not scaled though is fairly stable with scaled wt h/o 72.73 kg taken 07/31/20. If current wt is accurate this would be non-significant wt loss of 6% in 10 months. Pt documented with 25% PO intake first though no documented decrease in muscle strength or significant edema. Pt appears well developed well nourished per ED report. Pt currently lacks a minimum of two criteria for malnutrition. Noted pt with T2DM, fairly well controlled for age with A1c 8.3%. Pt admit for COVID, currently in airborne precautions and on NRB with SOB at rest and documented with N/V. Pt with a low Darnell of 12, skin intact per EMR. Will continue to follow. Addendum: 06/13/21 at [address] Muñoz RD Amended: Links added.
--- NOTE | 2021-06-13 14:53 | NUR ---
RT in room. Addendum: 06/13/21 at 1453 by Ramandeep Sheppard RN Amended: Links added.
--- NOTE | 2021-06-13 18:17 | NUR ---
Problems reprioritized. Patient report given, questions answered & plan of care reviewed with Juju COE.
--- NOTE | 2021-06-13 18:21 | NUR ---
Patient in room ORTHO 4018. I have received report from CAROLIN Sabillon and had the opportunity to ask questions and assume patient care.
--- NOTE | 2021-06-13 19:41 | NUR ---
I called Dr. Arias to see if he wanted the tele on for longer than 24hours since that was the order and he said to follow the order and take tele off after 24hours.
[2021-06-13] MEDS: tamsulosin 0.4mg capsule PO SCH (20:06)
[2021-06-13] MEDS: atorvastatin 20mg tablet PO SCH (20:06)
[2021-06-13] MEDS: magnesium hydroxide 30ml (MOM) UD suspension PO PRN (20:07)
[2021-06-13] MEDS: traZODone 50mg tablet PO SCH (21:00)
[2021-06-13] MEDS ORDERED: insulin glargine (Lantus) pen - multi-dose SQ SCH ×2 (21:00)
[2021-06-13] MEDS: REMDESIVIR 100 MG in NS 100ml IVPB IV SCH (22:39)
[2021-06-14] MEDS: pregabalin 25mg capsule PO SCH ×3 (00:04→15:39)
[2021-06-14] MEDS: pregabalin 75mg capsule PO SCH ×4 (00:04→23:59)
[2021-06-14 01:56] VITALS: BP 118/50
[2021-06-14 05:38] VITALS: BP 117/40
--- NOTE | 2021-06-14 06:05 | NUR ---
received report from denita toscano
--- NOTE | 2021-06-14 06:28 | NUR ---
Problems reprioritized. Patient report given, questions answered & plan of care reviewed with CAROLIN Reinoso.
[2021-06-14] MEDS: NUT.TX.GLUC.INTOLER,LAC-FR,SOY (GLUCERNA) 237 ML PO SCH ×3 (07:37→18:04)
[2021-06-14] MEDS: clopidogrel 75mg tablet PO SCH (07:41)
[2021-06-14] MEDS: pantoprazole 40mg Tablet.DR PO SCH (07:41)
[2021-06-14] MEDS: FLUoxetine 20mg capsule PO SCH (07:41)
[2021-06-14] MEDS: levoFLOXACIN 500mg tablet PO SCH (07:42)
[2021-06-14] MEDS: lisinopril 5mg tablet PO SCH (07:42)
[2021-06-14] MEDS: carvedilol 6.25mg tablet PO SCH ×2 (07:42→20:58)
[2021-06-14] MEDS: docusate sod 100mg capsule PO SCH ×2 (07:43→20:57)
[2021-06-14] MEDS: heparin, porcine 5000 units/ml vial SQ SCH (07:45)
[2021-06-14] MEDS: furosemide 40mg/4ml inj IV SCH ×2 (07:51→20:56)
[2021-06-14] MEDS: dexamethasone inj 6 MG in dextrose 5%-water 50ml 50 ML IV SCH (07:52)
[2021-06-14] MEDS: K and/or MAG REPLACEMENT MC SCH ×2 (08:00→20:00)
[2021-06-14] MEDS: insulin Lispro (HumaLOG) vial - multi-dose SQ SCH ×5 (08:28→20:51)
--- NOTE | 2021-06-14 09:40 | NUR ---
was paged about pt elevated bg level, no new orders at this time
[2021-06-14 10:00] VITALS: BP 134/32
[2021-06-14 10:13] LABS: BASOPHILS % (AUTO) 0.4 % (0-1); EOSINOPHILS % (AUTO) 0 % (0-6); HEMATOCRIT 37.7 % (42.0-52.0); HEMOGLOBIN 12.6 g/dl (14.0-17.9); LYMPHOCYTES # (AUTO) 0.2 X10'3 (1.1-4.8); LYMPHOCYTES % (AUTO) 1.6 % (21-51); MEAN CORPUSCULAR HEMOGLOBIN 31.3 PG (27.0-31.0); MEAN CORPUSCULAR HGB CONC 33.3 g/dL (33.0-36.5); MEAN CORPUSCULAR VOLUME 93.8 FL (78-98); MEAN PLATELET VOLUME 9.7 FL (7.4-10.4); MONOCYTES # (AUTO) 0.3 X10'3 (0-0.9); NEUTROPHILS # (AUTO) 10.1 X10'3 (1.8-7.7); PLATELET COUNT 155 X10'3 (140-440); RED BLOOD COUNT 4.02 X10'6 (4.70-6.10); RED CELL DISTRIBUTION WIDTH 14.4 % (11.5-14.5); WHITE BLOOD COUNT 10.6 X10'3 (4.5-11.0)
[2021-06-14 10:34] LABS: D-DIMER > 35.20 MG/L FEU (0-0.50)
[2021-06-14 10:43] LABS: ALANINE AMINOTRANSFERASE 28 U/L (12-78); ALBUMIN 2.3 G/DL (3.4-5.0); ALBUMIN/GLOBULIN RATIO 0.7 (1.1-1.5); ALKALINE PHOSPHATASE 79 IU/L (46-116); ANION GAP 13 (8-16); ASPARTATE AMINO TRANSFERASE 11 U/L (10-37); BILIRUBIN,TOTAL 1.2 MG/DL (0.1-1.0); BLOOD UREA NITROGEN 58 MG/DL (7-18); BUN/CREATININE RATIO 30.4 (5.4-32.0); C-REACTIVE PROTEIN 14.84 MG/DL (0.0-0.5); CALCIUM 7.8 MG/DL (8.5-10.1); CHLORIDE 102 MMOL/L (99-107); CREATININE 1.91 MG/DL (0.60-1.10); LACTATE DEHYDROGENASE 306 U/L (85-227); POTASSIUM 4.1 MMOL/L (3.5-5.1); SODIUM 142 MMOL/L (135-145); TOTAL CARBON DIOXIDE 27.2 MMOL/L (24-32); TOTAL PROTEIN 5.7 G/DL (6.4-8.2); eGFR 35 ML/MIN
[2021-06-14 10:48] LABS: GLUCOSE 470 MG/DL (70-104)
--- NOTE | 2021-06-14 12:05 | NUR ---
was paged about elevated bg, md said to increase lantus from 40 to 45 at night and continue to monitor pt
[2021-06-14 14:00] VITALS: BP 129/30
[2021-06-14] MEDS ORDERED: heparin 10,000 units/1 ML INJ IV PRN (15:35)
[2021-06-14] MEDS ORDERED: heparin 25,000 UNIT/250ml bag 250 ML IV SCH (15:35)
[2021-06-14] MEDS ORDERED: heparin 10,000 units/1 ML INJ IV ONE (15:35)
--- NOTE | 2021-06-14 17:33 | NUR ---
md aware of pt elevated bg, continue to monitor
[2021-06-14 18:00] VITALS: BP 103/47
--- NOTE | 2021-06-14 18:06 | NUR ---
gave report to denita dominique
[2021-06-14] MEDS: dexamethasone 1mg tablet PO SCH (20:57)
[2021-06-14] MEDS: tamsulosin 0.4mg capsule PO SCH (20:57)
[2021-06-14] MEDS: traZODone 50mg tablet PO SCH (20:57)
[2021-06-14] MEDS: magnesium hydroxide 30ml (MOM) UD suspension PO PRN (20:57)
[2021-06-14] MEDS: atorvastatin 20mg tablet PO SCH (20:57)
[2021-06-14] MEDS ORDERED: insulin glargine (Lantus) pen - multi-dose SQ SCH (21:00)
[2021-06-14 22:00] VITALS: BP 136/53
[2021-06-14] MEDS: REMDESIVIR 100 MG in NS 100ml IVPB IV SCH (22:46)
--- NOTE | 2021-06-14 23:50 | NUR ---
critical PTT [address] abreu.
[2021-06-15 02:00] VITALS: BP 125/53
[2021-06-15 04:34] LABS: BASOPHILS % (AUTO) 0.1 % (0-1); EOSINOPHILS % (AUTO) 0 % (0-6); HEMOGLOBIN 12.6 g/dl (14.0-17.9); LYMPHOCYTES # (AUTO) 0.3 X10'3 (1.1-4.8); MEAN CORPUSCULAR HEMOGLOBIN 30.6 PG (27.0-31.0); MEAN CORPUSCULAR HGB CONC 33.2 g/dL (33.0-36.5); MEAN PLATELET VOLUME 9.9 FL (7.4-10.4); MONOCYTES # (AUTO) 0.8 X10'3 (0-0.9); MONOCYTES % (AUTO) 5.6 % (2-12); NEUTROPHILS # (AUTO) 13.2 X10'3 (1.8-7.7); NEUTROPHILS % (AUTO) 92.3 % (42-75); PLATELET COUNT 172 X10'3 (140-440); RED BLOOD COUNT 4.13 X10'6 (4.70-6.10); RED CELL DISTRIBUTION WIDTH 14.2 % (11.5-14.5); WHITE BLOOD COUNT 14.3 X10'3 (4.5-11.0)
[2021-06-15 04:43] LABS: D-DIMER 10.24 MG/L FEU (0-0.50)
[2021-06-15 04:47] LABS: ALANINE AMINOTRANSFERASE 23 U/L (12-78); ALBUMIN 2.4 G/DL (3.4-5.0); ALBUMIN/GLOBULIN RATIO 0.7 (1.1-1.5); ALKALINE PHOSPHATASE 75 IU/L (46-116); ANION GAP 12 (8-16); ASPARTATE AMINO TRANSFERASE 15 U/L (10-37); BILIRUBIN,TOTAL 0.7 MG/DL (0.1-1.0); BLOOD UREA NITROGEN 64 MG/DL (7-18); BUN/CREATININE RATIO 35.2 (5.4-32.0); CHLORIDE 105 MMOL/L (99-107); CREATININE 1.82 MG/DL (0.60-1.10); GLUCOSE 81 MG/DL (70-104); LACTATE DEHYDROGENASE 335 U/L (85-227); POTASSIUM 4.2 MMOL/L (3.5-5.1); SODIUM 143 MMOL/L (135-145); TOTAL CARBON DIOXIDE 26.4 MMOL/L (24-32); TOTAL PROTEIN 5.8 G/DL (6.4-8.2); eGFR 36 ML/MIN
[2021-06-15 06:00] VITALS: BP 120/48
--- NOTE | 2021-06-15 06:31 | NUR ---
Problems reprioritized. Patient report given, questions answered & plan of care reviewed with denita Diaz.
--- NOTE | 2021-06-15 06:40 | NUR ---
Patient in room ORTHO 4018. I have received report from CAROLIN Lawton and had the opportunity to ask questions and assume patient care.
[2021-06-15] MEDS: docusate sod 100mg capsule PO SCH (07:53)
[2021-06-15] MEDS: pregabalin 75mg capsule PO SCH ×2 (07:54→16:00)
[2021-06-15] MEDS: pregabalin 25mg capsule PO SCH ×3 (07:54→16:00)
[2021-06-15] MEDS: carvedilol 6.25mg tablet PO SCH (07:55)
[2021-06-15] MEDS: clopidogrel 75mg tablet PO SCH (07:56)
[2021-06-15] MEDS: dexamethasone 1mg tablet PO SCH (07:57)
[2021-06-15] MEDS: pantoprazole 40mg Tablet.DR PO SCH (07:57)
[2021-06-15] MEDS: FLUoxetine 20mg capsule PO SCH (07:57)
[2021-06-15] MEDS: NUT.TX.GLUC.INTOLER,LAC-FR,SOY (GLUCERNA) 237 ML PO SCH ×2 (07:58→13:00)
[2021-06-15 08:00] VITALS: BP 95/42
[2021-06-15] MEDS: lisinopril 5mg tablet PO SCH (08:00)
[2021-06-15] MEDS: furosemide 40mg/4ml inj IV SCH (08:00)
[2021-06-15] MEDS: K and/or MAG REPLACEMENT MC SCH (08:00)
[2021-06-15] MEDS: insulin Lispro (HumaLOG) vial - multi-dose SQ SCH ×2 (09:13→13:30)
[2021-06-15] MEDS ORDERED: DEXAMETHASONE 6 MG TABLET PO SCH (10:01)
[2021-06-15 10:30] VITALS: BP 120/44
[2021-06-15] MEDS ORDERED: LIDOcaine 2% 10ml TOPICAL JELLY (Urojet) TP ONE (12:55)
[2021-06-15 14:00] VITALS: BP 119/45
--- NOTE | 2021-06-15 15:05 | NUR ---
[facility] TO GIVE [facility]PORT. WAS TOLD THE NURSES WERE BUSY AND THEY DIDN'T KNOW WHICH NURSE IS GOING TO HAVE MR. VALENTINE. WAS TOLD THEY WERE GOING TO CALL US TO GET REPORT. WILL CALL THEM AGAIN IN 1 HOUR.
--- NOTE | 2021-06-15 16:35 | NUR ---
TONIA REQUESTED THAT WE LEAVE ONE IV IN PLACE FOR THE PATIENT. LEFT 22 GAUGE IV IN RIGHT FOREARM.
--- NOTE | 2021-06-15 17:18 | NUR ---
Problems reprioritized. Patient report given, questions answered & plan of care reviewed with MICHELET COE AT [facility].
--- NOTE | 2021-06-15 17:40 | NUR ---
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
[2021-06-15] MEDS ORDERED: enoxaparin 40mg/0.4ml syringe SUBCUT SCH (20:00)
== END 2021-06-15 17:15 | DRG 871 ==
LOC: ER 19:05 → ED HOLD 06-13 00:07 → ORTHO 4S 06-13 01:43
PROVIDERS: ADMIT Internal Medicine; ATTEND Internal Medicine
PROC: XW033E5 Introduction of Remdesivir Anti-infective into Peripheral Vein, Percutaneous Approach, New Technology Group 5 (ICD-10-PCS; principal; 2021-06-12)
PROC: B32T1ZZ Computerized Tomography (CT Scan) of Left Pulmonary Artery using Low Osmolar Contrast (ICD-10-PCS; 2021-06-12)
PROC: B3201ZZ Computerized Tomography (CT Scan) of Thoracic Aorta using Low Osmolar Contrast (ICD-10-PCS; 2021-06-12)
PROC: B32S1ZZ Computerized Tomography (CT Scan) of Right Pulmonary Artery using Low Osmolar Contrast (ICD-10-PCS; 2021-06-12)
PROC: 5A0935A Assistance with Respiratory Ventilation, Less than 24 Consecutive Hours, High Flow/Velocity Cannula (ICD-10-PCS; 2021-06-13)
PROC: 5A0945A Assistance with Respiratory Ventilation, 24-96 Consecutive Hours, High Flow/Velocity Cannula (ICD-10-PCS; 2021-06-14)
DX: A41.9 Sepsis, unspecified organism (principal); U07.1 COVID-19; J12.82 Pneumonia due to coronavirus disease 2019; J96.01 Acute respiratory failure with hypoxia; D84.9 Immunodeficiency, unspecified; Z68.43 Body mass index [BMI] 50.0-59.9, adult; I13.0 Hypertensive heart and chronic kidney disease with heart failure and stage 1 through stage 4 chronic kidney disease, or unspecified chronic kidney disease; E87.3 Alkalosis; N17.9 Acute kidney failure, unspecified; E10.22 Type 1 diabetes mellitus with diabetic chronic kidney disease; E10.42 Type 1 diabetes mellitus with diabetic polyneuropathy; E10.51 Type 1 diabetes mellitus with diabetic peripheral angiopathy without gangrene; E10.65 Type 1 diabetes mellitus with hyperglycemia; E66.01 Morbid (severe) obesity due to excess calories; E78.00 Pure hypercholesterolemia, unspecified; F32.A Depression, unspecified; K21.9 Gastro-esophageal reflux disease without esophagitis; I25.10 Atherosclerotic heart disease of native coronary artery without angina pectoris; I48.91 Unspecified atrial fibrillation; E78.5 Hyperlipidemia, unspecified; I50.9 Heart failure, unspecified; N18.9 Chronic kidney disease, unspecified; Z66 Do not resuscitate; Z83.3 Family history of diabetes mellitus; Z86.73 Personal history of transient ischemic attack (TIA), and cerebral infarction without residual deficits; I25.2 Old myocardial infarction; Z87.11 Personal history of peptic ulcer disease; Z87.891 Personal history of nicotine dependence; Z82.49 Family history of ischemic heart disease and other diseases of the circulatory system; Z95.1 Presence of aortocoronary bypass graft; Z98.61 Coronary angioplasty status; Z88.5 Allergy status to narcotic agent; Z95.0 Presence of cardiac pacemaker; Z79.02 Long term (current) use of antithrombotics/antiplatelets; Z79.899 Other long term (current) drug therapy; Z89.612 Acquired absence of left leg above knee; Z89.611 Acquired absence of right leg above knee
CPT/HCPCS: 36415; 36600; 71045; 71275; 80053; 81001; 82728; 82803; 82948; 83036; 83605; 83615; 83735; 83880; 84132; 84145; 84484; 85018; 85025; 85379; 85610; 85730; 86140; 87040; 87077; 87081; 87088; 87186; 93005; 93306; 94760; 99285; G0378; J1100; J1644; J1815; J1940; J2405; J3490; J7060; J8540; Q9967

== ENCOUNTER 2021-07-02 18:06 | Inpatient (IN) | payer MEDICARE, OTHER ==
[~2021-07-02] VITALS: Ht 175.3 cm; Wt 75.0 kg
[~2021-07-02 18:06] MED LIST changes: -CARV3.12 PO; +CARV6.253 PO; +INSU100I25 SQ; -LACT1CAP26 PO; -LEVO250T43 PO; -LISI2.5T14 PO; +LISI5TAB22 PO; -PANT-47 PO; +PANT20TA18 PO
[2021-07-02 19:07] LABS: BASOPHILS # (AUTO) 0.1 X10'3 (0-0.2); BASOPHILS % (AUTO) 0.4 % (0-1); EOSINOPHILS % (AUTO) 0 % (0-6); HEMATOCRIT 33.5 % (42.0-52.0); HEMOGLOBIN 11.1 g/dl (14.0-17.9); LYMPHOCYTES # (AUTO) 0.2 X10'3 (1.1-4.8); LYMPHOCYTES % (AUTO) 0.9 % (21-51); MEAN CORPUSCULAR HEMOGLOBIN 29.9 PG (27.0-31.0); MEAN CORPUSCULAR VOLUME 90.6 FL (78-98); MEAN PLATELET VOLUME 9.2 FL (7.4-10.4); MONOCYTES # (AUTO) 0.3 X10'3 (0-0.9); NEUTROPHILS % (AUTO) 96.7 % (42-75); PLATELET COUNT 156 X10'3 (140-440); RED CELL DISTRIBUTION WIDTH 14.5 % (11.5-14.5); WHITE BLOOD COUNT 17.6 X10'3 (4.5-11.0)
[2021-07-02 19:22] LABS: ALANINE AMINOTRANSFERASE 30 U/L (12-78); ALBUMIN 1.5 G/DL (3.4-5.0); ALBUMIN/GLOBULIN RATIO 0.4 (1.1-1.5); ALKALINE PHOSPHATASE 80 IU/L (46-116); ANION GAP 14 (8-16); ASPARTATE AMINO TRANSFERASE 21 U/L (10-37); BILIRUBIN,TOTAL 0.4 MG/DL (0.1-1.0); BLOOD UREA NITROGEN 41 MG/DL (7-18); BUN/CREATININE RATIO 31.8 (5.4-32.0); CALCIUM 7.7 MG/DL (8.5-10.1); CHLORIDE 103 MMOL/L (99-107); CREATININE 1.29 MG/DL (0.60-1.10); GLUCOSE 338 MG/DL (70-104); POTASSIUM 4.6 MMOL/L (3.5-5.1); SODIUM 137 MMOL/L (135-145); TOTAL PROTEIN 5.4 G/DL (6.4-8.2); eGFR 54 ML/MIN
[2021-07-02] MEDS ORDERED: normal saline 1000ML IV soln IV ONE (19:25)
[2021-07-02] MEDS ORDERED: piperacillin/tazo 3.375gm/50ml 50 ML IV ONE (19:25)
[2021-07-02] MEDS ORDERED: vancomycin/NS 1 GM ADD-VANTAGE 250 ML IV ONE (19:25)
[2021-07-02 19:31] LABS: MAGNESIUM 2.2 MG/DL (1.5-2.4)
[2021-07-02] MEDS ORDERED: cefepime 2g/NS 100ml ADVANTAGE 100 ML IV STA (19:33)
--- NOTE | 2021-07-02 19:34 | NUR ---
pt presents to the ed via ems from [facility] with c/o difficulty breathing - SaO2 in the 80s; the pt states he developed resp illness s/p covid months ago despite having Vignesh & Vignesh covid vaccine. the pt denies sorethroat, fever/chills, h/a, n/v/d, or other symptoms; the pt is a/o, nad, skin w/d; his current SaO2 93% on bag mask; will ctm
[2021-07-02] MEDS ORDERED: normal saline 1000ML IV soln IVB ONE (19:35)
[2021-07-02] MEDS ORDERED: CEFEPIME 2gm in D5W 50mL 50 ML IV STA (19:37)
--- NOTE | 2021-07-02 19:50 | NUR ---
Rapid covid spec collected and sent
--- NOTE | 2021-07-02 20:15 | NUR ---
pt medicated per mar
--- NOTE | 2021-07-02 20:45 | NUR ---
urine collected and sent
[2021-07-02 20:57] LABS: CLARITY,URINE SLIGHTLY CLOUDY (Clear); COLOR,URINE YELLOW (Yellow); GLUCOSE, URINE >=1000 mg/dl (Neg); KETONES,URINE TRACE mg/dl (Neg); LEUKOCYTE ESTERASE ,URINE NEGATIVE (Neg); NITRITES, URINE NEGATIVE (Neg); OCCULT BLOOD,URINE TRACE-INTACT (Neg); PH,URINE 5.5 (4.8-8.0); PROTEIN,URINE NEGATIVE (Neg); UROBILINOGEN,URINE 0.2 E.U/dL (0.2-1.0)
[2021-07-02 20:59] LABS: UA COLLECTION TYPE NON-SPECIFIED
[2021-07-02] MEDS ORDERED: temazepam 15mg capsule PO PRN (21:00)
[2021-07-02 21:11] LABS: BACTERIA,URINE 4+ /HPF (Neg); SQUAMOUS EPITHELIAL CELL,UR FEW /LPF (FEW)
[2021-07-02 21:12] LABS: URIC ACID CRYSTALS 1+ /HPF (NEGATIVE)
[2021-07-02 21:26] LABS: PLATELET ESTIMATE NORMAL; TOTAL CELLS COUNTED 100
[2021-07-02 21:27] LABS: BURR CELLS 1+; TEAR DROP CELLS FEW
--- NOTE | 2021-07-02 21:57 | NUR ---
Angeles - output 900cc
[2021-07-02] MEDS ORDERED: normal saline 1000ml 1,000 ML IV SCH (22:15)
[2021-07-02] MEDS ORDERED: mag hydrox/Alum hydrox/simeth 30ml oral suspension PO PRN (22:15)
[2021-07-02] MEDS ORDERED: acetaminophen 650mg rectal suppository RC PRN (22:15)
[2021-07-02] MEDS ORDERED: ondansetron 4mg rapidly disintigrating tab PO PRN (22:15)
[2021-07-02] MEDS ORDERED: ipratropium/albuterol 3ml nebule NEB PRN (22:15)
[2021-07-02] MEDS ORDERED: magnesium hydroxide 30ml (MOM) UD suspension PO PRN (22:15)
[2021-07-02] MEDS ORDERED: acetaminophen 325mg tablet PO PRN ×2 (22:15)
[2021-07-02] MEDS ORDERED: HYDROcodone/acetaminophen 5mg/325mg tablet PO PRN (22:15)
[2021-07-02] MEDS ORDERED: bisacodyl 10mg suppository rectal RC PRN (22:15)
[2021-07-02] MEDS ORDERED: diphenhydrAMINE 25mg capsule PO PRN (22:15)
[2021-07-02] MEDS ORDERED: diphenhydrAMINE 50 mg/ml inj IV PRN (22:15)
[2021-07-02] MEDS ORDERED: ondansetron/PF 4mg/2ml inj IV PRN (22:15)
[2021-07-02] MEDS ORDERED: DEXTROSE 15 GM of carb/4 tabs (each vial/BOTTLE has 4 tablets) PO PRN ×2 (22:25)
[2021-07-02] MEDS ORDERED: dextrose 50%-water 50ml dispensing syringe IV PRN ×2 (22:25)
[2021-07-02] MEDS ORDERED: MESSAGE TO PHARMACY PO ONE (22:25)
[2021-07-02] MEDS ORDERED: insulin Lispro (HumaLOG) vial - multi-dose SQ SCH (22:25)
[2021-07-02] MEDS ORDERED: lisinopril 10 MG tablet PO ONE (22:25)
[2021-07-02] MEDS ORDERED: glucagon, human recombinant 1mg kit SUBCUT PRN (22:25)
[2021-07-02 22:43] LABS: APTT 31 SECONDS (22-32); PHOSPHORUS 3.2 MG/DL (2.3-4.5)
[2021-07-02] MEDS ORDERED: lisinopril 2.5mg tablet PO ONE (23:05)
--- NOTE | 2021-07-03 00:57 | NUR ---
Pt in bed resting comfy supine. nonrebreather at 10L/min sat 95%. Angeles cath patent and intact draining to gravity. NS @ KVO rate. AAOxs3. No complaints of pain or discomfort. VS updated. Able to make needs known. No acute distress at present. Will cont to monitor throughout
[2021-07-03 01:58] LABS: BASOPHILS % (AUTO) 0.2 % (0-1); EOSINOPHILS % (AUTO) 0 % (0-6); HEMATOCRIT 38.2 % (42.0-52.0); HEMOGLOBIN 12.5 g/dl (14.0-17.9); LYMPHOCYTES # (AUTO) 0.5 X10'3 (1.1-4.8); MEAN CORPUSCULAR HEMOGLOBIN 29.9 PG (27.0-31.0); MEAN CORPUSCULAR HGB CONC 32.7 g/dL (33.0-36.5); MEAN CORPUSCULAR VOLUME 91.7 FL (78-98); MEAN PLATELET VOLUME 9.2 FL (7.4-10.4); MONOCYTES # (AUTO) 0.6 X10'3 (0-0.9); MONOCYTES % (AUTO) 3.4 % (2-12); NEUTROPHILS # (AUTO) 16.4 X10'3 (1.8-7.7); NEUTROPHILS % (AUTO) 93.4 % (42-75); PLATELET COUNT 177 X10'3 (140-440); RED BLOOD COUNT 4.17 X10'6 (4.70-6.10); RED CELL DISTRIBUTION WIDTH 14.9 % (11.5-14.5); WHITE BLOOD COUNT 17.6 X10'3 (4.5-11.0)
[2021-07-03 02:16] LABS: ALANINE AMINOTRANSFERASE 28 U/L (12-78); ALBUMIN 1.6 G/DL (3.4-5.0); ALBUMIN/GLOBULIN RATIO 0.3 (1.1-1.5); ALKALINE PHOSPHATASE 88 IU/L (46-116); ANION GAP 11 (8-16); ASPARTATE AMINO TRANSFERASE 19 U/L (10-37); BILIRUBIN,TOTAL 0.5 MG/DL (0.1-1.0); BLOOD UREA NITROGEN 38 MG/DL (7-18); BUN/CREATININE RATIO 31.7 (5.4-32.0); CALCIUM 7.9 MG/DL (8.5-10.1); CHLORIDE 107 MMOL/L (99-107); CHOL/HDL RATIO 2.9 (0.00-4.99); CHOLESTEROL 83 MG/DL (0-200); GLUCOSE 211 MG/DL (70-104); HDL CHOLESTEROL 29 MG/DL (35-60); LDL CHOLESTEROL 40 MG/DL (50-100); POTASSIUM 4.6 MMOL/L (3.5-5.1); SODIUM 139 MMOL/L (135-145); TOTAL CARBON DIOXIDE 20.8 MMOL/L (24-32); TOTAL PROTEIN 6.3 G/DL (6.4-8.2); TRIGLYCERIDES 71 MG/DL (20-135); eGFR 59 ML/MIN
--- NOTE | 2021-07-03 02:30 | NUR ---
Pt repositioned VS updated. No acute distress.
--- NOTE | 2021-07-03 04:15 | NUR ---
Report given to PCU nurse, VS updated nonrebreater increased to 15L per respiratory therapy prior. Informed pt of room change. Preparing for transport.
--- NOTE | 2021-07-03 05:00 | NUR ---
Received pt in bed Awake, and mildly lethargic, breathing 35-38 on NRM. Unable to obtained oxygen saturation; respiratory paged. Oxygen saturation fluctuating 69-78%. Attempted to warm pt'fingers to obtain accurate saturation unsuccessfully,
[2021-07-03 05:06] VITALS: BP 150/83
--- NOTE | 2021-07-03 05:15 | NUR ---
Charge nurse made aware of pt's condition. I verbalized that pt is not stable enough to be on this floor. Respiratory at bedside assessing pt; unable to get a good sat reading. call staff for help because pt had fixed pupil and shallow breathing. Rapid response called.
--- NOTE | 2021-07-03 05:30 | NUR ---
No sign of life except pacer capturing. Call Dr Viveros to assess pt condition.
--- NOTE | 2021-07-03 06:30 | NUR ---
Pt's daughter Ms Gayle in to see pt; decided which mortuary to release the body. She is instructed to take home all pt's belongings. Belongings placed on the chair.
--- NOTE | 2021-07-03 07:05 | NUR ---
call placed to [facility] spoke to Cristine, the remaining body will be picker operator within 1-1.5 hours.
[2021-07-03] MEDS ORDERED: pantoprazole 40mg Tablet.DR PO SCH (07:30)
--- NOTE | 2021-07-03 07:53 | NUR ---
remain body warehouse order picker by [facility].
[2021-07-03] MEDS ORDERED: aspirin 81mg, enteric-coated 1 TAB TABLET.DR PO SCH (08:00)
[2021-07-03] MEDS ORDERED: cefTRIAXone 1g/NS 100ml IVPB 100 ML IV SCH (08:00)
[2021-07-03] MEDS ORDERED: azithromycin/NS 500mg/250ml 250 ML IV SCH (08:00)
[2021-07-03] MEDS ORDERED: heparin, porcine 5000 units/ml vial SQ SCH (08:00)
[2021-07-03] MEDS ORDERED: docusate sod 100mg capsule PO SCH (08:00)
[2021-07-03] MEDS ORDERED: nitroGLYCERIN 0.1mg/hour patch TD SCH (08:00)
[2021-07-03] MEDS ORDERED: furosemide 20 MG/2 ML vial IV SCH (08:00)
[2021-07-03] MEDS ORDERED: insulin glargine (Lantus) pen - multi-dose SQ SCH (21:00)
== END 2021-07-03 07:58 | DRG 871 ==
LOC: ER 18:06 → ED HOLD 22:21 → PCU 3S 07-03 04:47
PROVIDERS: ADMIT Family Medicine; ATTEND Family Medicine
DX: A41.9 Sepsis, unspecified organism (principal); I21.A1 Myocardial infarction type 2; J96.01 Acute respiratory failure with hypoxia; I50.23 Acute on chronic systolic (congestive) heart failure; R65.21 Severe sepsis with septic shock; J18.1 Lobar pneumonia, unspecified organism; I13.0 Hypertensive heart and chronic kidney disease with heart failure and stage 1 through stage 4 chronic kidney disease, or unspecified chronic kidney disease; I48.92 Unspecified atrial flutter; J44.0 Chronic obstructive pulmonary disease with (acute) lower respiratory infection; N17.9 Acute kidney failure, unspecified; N39.0 Urinary tract infection, site not specified; J44.1 Chronic obstructive pulmonary disease with (acute) exacerbation; Z20.822 Contact with and (suspected) exposure to COVID-19; E11.22 Type 2 diabetes mellitus with diabetic chronic kidney disease; E11.42 Type 2 diabetes mellitus with diabetic polyneuropathy; E11.51 Type 2 diabetes mellitus with diabetic peripheral angiopathy without gangrene; E11.65 Type 2 diabetes mellitus with hyperglycemia; E78.00 Pure hypercholesterolemia, unspecified; E78.5 Hyperlipidemia, unspecified; E86.1 Hypovolemia; E88.09 Other disorders of plasma-protein metabolism, not elsewhere classified; I25.10 Atherosclerotic heart disease of native coronary artery without angina pectoris; I46.9 Cardiac arrest, cause unspecified; Z66 Do not resuscitate; I48.91 Unspecified atrial fibrillation; F32.A Depression, unspecified; I95.9 Hypotension, unspecified; K21.9 Gastro-esophageal reflux disease without esophagitis; N18.9 Chronic kidney disease, unspecified; I25.2 Old myocardial infarction; Z82.49 Family history of ischemic heart disease and other diseases of the circulatory system; Z83.3 Family history of diabetes mellitus; Z86.73 Personal history of transient ischemic attack (TIA), and cerebral infarction without residual deficits; Z87.891 Personal history of nicotine dependence; Z89.611 Acquired absence of right leg above knee; Z89.612 Acquired absence of left leg above knee; Z95.0 Presence of cardiac pacemaker; Z95.1 Presence of aortocoronary bypass graft; Z88.5 Allergy status to narcotic agent; Z79.899 Other long term (current) drug therapy
CPT/HCPCS: 36415; 71045; 80053; 80061; 81001; 83605; 83735; 83880; 84100; 84145; 84484; 85007; 85025; 85610; 85730; 87040; 87635; 93005; 94640; 94760; 96365; 96366; 96368; 99285; C9803; G0378; J0692; J1815; J3370; J7030